=== PATIENT | female | born 1985 | race Caucasian/White ===

== ENCOUNTER 2021-09-07 12:07 | Emergency (ER) | payer OTHER, SELFPAY ==
--- NOTE | ~2021-09-07 | CT_ITS ---
EXAMINATION: CT ANGIOGRAM OF THE CHEST WITH AND WITHOUT CONTRAST (CT PULMONARY ANGIOGRAM FOR PE) CLINICAL INFORMATION: Reason for Exam CP, SOB, elevated d-dimer COMPARISON: None TECHNIQUE: Prior to contrast administration, noncontrast localization images were obtained. Subsequently, multidetector volumetric imaging was performed from the thoracic inlet to below the diaphragms following the administration of 62 mL Omnipaque 350 intravenous contrast. No contrast reaction reported Sagittal, coronal, and MIP oblique sagittal reformatted images were obtained on the CT workstation, uploaded to PACS, and reviewed. This CT examination was performed using dose optimization techniques as appropriate, variously including the following: *Automated exposure control *Adjustment of mA and/or kV according to patient size (this includes techniques or standardized protocols for targeted exams where dose is matched to indication/reason for exam; i.e. extremities or head) *Use of iterative reconstruction technique Total exam dose-length product 249 mGy-cm FINDINGS: QUALITY OF STUDY/CONTRAST BOLUS: Satisfactory. PULMONARY ARTERIES: No central or segmental pulmonary emboli. THORACIC AORTA: No aneurysm or dissection. Variant direct origin left vertebral artery from the aortic arch noted incidentally. LUNG: No focal consolidation, nodules or masses. PLEURA: No pleural effusion or pneumothorax. MEDIASTINUM: No cardiomegaly or pericardial effusion. No mediastinal or hilar lymphadenopathy . CHEST WALL/AXILLA: No axillary or internal mammary lymphadenopathy. OSSEOUS STRUCTURES: No acute or suspicious osseous abnormality. UPPER ABDOMEN: Unremarkable. No reflux of contrast into the hepatic veins to suggest elevated right heart pressures. CT/CT angio chest PE protocol IMPRESSION: 1. No evidence pulmonary embolus. 2. No airspace consolidation or effusions. VTE: negative
--- NOTE | ~2021-09-07 | XR_ITS ---
EXAMINATION: XR CHEST CLINICAL INFORMATION: Chest pain COMPARISON: None TECHNIQUE: 2 views of the chest were obtained. FINDINGS: The lungs are clear. No airspace consolidation, pleural effusion, or pneumothorax. The cardiomediastinal silhouette is within normal limits. No acute osseous injury. Right-sided nipple piercing noted. XR/XR chest 2V IMPRESSION: No acute pulmonary process.
[2021-09-07 12:28] VITALS: BP 134/78; PULSE 57; RESP 18; TEMP 36.1; O2SAT 100; BMI 27.1
--- NOTE | 2021-09-07 14:46 | ECG_ITS ---
Test Reason : chest pain Blood Pressure : / mmHG Vent. Rate : 060 BPM Atrial Rate : 060 BPM P-R Int : 182 ms QRS Dur : 078 ms QT Int : 436 ms P-R-T Axes : 046 056 009 degrees QTc Int : 436 ms Normal sinus rhythm Normal ECG No previous ECGs available Referred By: Generic ED Physician Electronically Signed By:JUANCARLOS CLAYTON MD
[2021-09-07 17:57] LABS: Hematocrit 39.2 % (37.0-47.0); Hemoglobin 13.1 g/dl (12.0-16.0); Mean Corpuscular HGB Conc 33.4 g/dl (31.0-35.0); Mean Corpuscular Hemoglobin 29.4 pg (27.0-33.0); Mean Corpuscular Volume 88.1 fL (80.0-98.0); Mean Platelet Volume 9.7 fL (9.4-12.3); Platelet Count 288 X10*3/uL (160-400); Red Blood Count 4.45 X10*6/uL (4.20-5.50); Red Cell Distribution Width 13.2 % (11.0-16.0); White Blood Count 8.2 X10*3/uL (4.8-10.8)
[2021-09-07 18:14] LABS: Anion Gap 14 (12-20); Blood Urea Nitrogen 11 mg/dL (9-16); Calcium 8.9 mg/dL (8.4-10.2); Carbon Dioxide 24 mmol/L (22-29); Chloride 105 mmol/L (96-108); Estimated Glomerular Filt Rate > 60; Glucose Random 80 mg/dL (60-115); Potassium 4.7 mmol/L (3.3-5.1); Sodium 138 mmol/L (135-145)
--- NOTE | 2021-09-07 18:16 | ED_ITS ---
HPI - Chest Pain General Chief Complaint: Chest Pain <Maine ThompsonGARCIA - Last Filed: 09/07/21 20:57> Stated Complaint: SEVERE CHEST PAIN <Maine ThompsonGACRIA - Last Filed: 09/07/21 20:57> Time Seen by Provider: 09/07/21 18:03 <Maine ThompsonGARCIA - Last Filed: 09/07/21 20:57> Source: patient <Maine Thompson GARCIA - Last Filed: 09/07/21 20:57> Mode of arrival: ambulatory <Maine ThompsonGARCIA - Last Filed: 09/07/21 20:57> Limitations: no limitations <Maine ThompsonGARCIA - Last Filed: 09/07/21 20:57> History of Present Illness HPI narrative: Patient presents emergency department for evaluation of chest pain. Onset was 2 days ago. [place] a substernal, described as tightness, feels that it is causing stiffness in her neck and along her left arm. She does report that she recently started an exercise routine, ?not sure if I pulled something?. The chest pain improves with movement of her arms/stretching. But then it returns. She does report associated shortness of breath over the past few days if she is up and walking wound, or talking for too long, prior to her arrival today she was feeling severe pain 10/10, short of breath, sweaty. Currently, her pain is 6/10. Denies fevers, chills, upper respiratory symptoms, coughing, nausea, vomiting, abdominal pain, numbness or tingling of the extremities, swelling or pain in her extremities. Denies personal history of DVT/PE, cancer, recent surgery, immobilization, use of oral contraceptives, tobacco smoking. Reports a family history of [place] at a young age, as well as DVTs. <Maine ThompsonGARCIA - Last Filed: 09/07/21 20:57> Related Data Allergies/Adverse Reactions: Allergies Allergy/AdvReac Type Severity Reaction Status Date / Time No Known Allergies Allergy Verified 09/07/21 12:27 <Maine Schmid GARCIA Thompson - Last Filed: 09/07/21 20:57> Review of Systems Review of Systems: Constitutional : No Weight loss, No Fever, No Chills ENT/Mouth :? No sore throat, No Rhinorrhea Eyes: No Eye Pain, No Swelling Cardiovascular : pos Chest Pain, pos SOB, No Orthopnea, No Edema, No Palpitations Respiratory : No Cough, No Sputum Gastrointestinal : pos Nausea, No Vomiting, No Diarrhea, No abdominal Pain, No Hematochezia, No Melena Genitourinary : No Dysuria, No Urinary Frequency Musculoskeletal : No joint pain, No Myalgias, No Joint Swelling Skin : No Skin Lesions, No rash Neuro : No Weakness, No Numbness, No Dizziness, No Headache Psych : No Anxiety/Panic, No Depression Heme/Lymph: No Bruising, No Lymphadenopathy Endocrine : No Polyuria, No Polydipsia <Maine Thompson CNP - Last Filed: 09/07/21 20:57> Yes all other systems are reviewed and are negative <Maine Thompson CNP - Last Filed: 09/07/21 20:57> [facility] Past Medical History Attestation statement: The following information was validated with the patient. <Maine Thompson CNP - Last Filed: 09/07/21 20:57> Source: old records reviewed <Maine Thompson CNP - Last Filed: 09/07/21 20:57> Social History Social History: Social History Advance Directives: No Advance Directives Information Provided: Yes <Maine Thompson CNP - Last Filed: 09/07/21 20:57> Physical Exam Vital Signs: Vital Signs: Last Vital Signs Temp 96.9 F 09/07/21 12:28 Pulse 57 09/07/21 12:28 Resp 18 09/07/21 12:28 BP 134/78 09/07/21 12:28 Pulse Ox 100 09/07/21 12:28 O2 Del Method 09/07/21 12:28 BMI result Body Mass Index 27.1 Vital signs have been reviewed as normal and appeared to be correct. Blood press ure normal.? Heart rate normal.? Respiration rate normal. Temperature normal.? Oxygen saturation normal. <Maine Thompson CNP - Last Filed: 09/07/21 20:57> Vital Signs: Last Vital Signs Temp 96.9 F 09/07/21 12:28 Pulse 57 09/07/21 12:28 Resp 18 09/07/21 12:28 BP 134/78 09/07/21 12:28 Pulse Ox 100 09/07/21 12:28 O2 Del Method 09/07/21 12:28 BMI result Body Mass Index 27.1 <CHINA Drake - Last Filed: 09/07/21 23:09> Appearance: Alert.?Oriented to person, place and time. No acute distress.?Normal affect. Eyes: Pupils equal, round and reactive to light.? ENT: Pharynx normal.?? Neck: Normal inspection.? Neck supple.?? CVS: Heart sounds normal. Normal heart rate and rhythm.? Pulses normal.?? Respiratory: No respiratory distress.? Lung sounds clear to auscultation bilaterally?? Abdomen: Soft and non-tender. Normoactive bowel sounds. No pulsatile mass.?? Skin: Skin warm and dry.? Normal skin color.? Extremities: No lower extremity edema.? No calf ttp? Neuro: Moves all extremities spontaneously. Sensation intact bilaterally. CN II- XII intact. No focal neuro deficits. Ambulates with normal steady gait. <Maine Thompson CNP - Last Filed: 09/07/21 20:57> Course Course Course Narrative: Patient is a 36-year-old female with no significant past medical history presenting to emergency department for evaluation of chest pain x2 days. She is overall well appearing, hemodynamically stable. Given that her pain does improve with movement of her arms her back this may be muscular in nature, will trial a course of ibuprofen at this time. Will obtain CBC to evaluate for leukocytosis/ anemia, CMP to evaluate for abnormal electrolytes /abnormal renal function/ abnormal hepatic function, EKG and troponin to evaluate for ischemia/ACS. Chest x-ray to evaluate for consolidation/ infiltrate/ mass/ pulm onary congestion. D-dimer to exclude pulmonary embolism. <Maine Thompson CNP - Last Filed: 09/07/21 20:57> Reevaluation(s) Reevaluation #1: CBC is unremarkable, CMP unremarkable. Troponin <3.5, EKG reveals normal sinus rhythm with no acute ischemic findings. D-Dimer 425, will obtain CT angio of the chest to evaluate for pulmonary embolism. Advised by nursing staff that patient is bradycardic with heart rate in the high 40s to 50s. Patient states she is unaware of her baseline heart rate. Asymptomatic. Repeat EKG shows sinus bradycardia, no AV block. <Maine Thompson CNP - Last Filed: 09/07/21 20:57> Time: 19:08 <Maine Thompson CNP - Last Filed: 09/07/21 20:57> Reevaluation #2: Patient signed out to Bonny Plasencia, pending results of CT of the chest, if unremarkable for pulmonary embolism, pain most likely secondary to costochondritis, which I reviewed with patient, discussed appropriate treatment for, discussed worsening signs and symptoms she would need to return back to the emergency department for, all questions were answered. <Maine Thompson CNP - Last Filed: 09/07/21 20:57> Reevaluation #3: CT angiogram for PE with no signs of PE, likely costochondritis. Patient will be discharged home. <CHINA Drake - Last Filed: 09/07/21 23:09> Time: 23:09 <CHINA Drake - Last Filed: 09/07/21 23:09> MDM - Chest Pain Medical Records Data Attestation: I reviewed the patient's medical records. <Maine Thompson CNP - Last Filed: 09/07/21 20:57> Lab Data Attestation: I reviewed the patient's lab results. <Maine Thompson CNP - Last Filed: 09/07/21 20:57> Result diagrams: : 09/07/21 17:46 09/07/21 17:46 <Maine Thompson CNP - Last Filed: 09/07/21 20:57> Labs: Lab Results 09/07/21 09/07/21 09/07/21 Range/Units 17:46 17:46 17:46 WBC 8.2 (4.8-10.8) X10*3/uL RBC 4.45 (4.20-5.50) X10*6/uL Hgb 13.1 (12.0-16.0) g/dl Hct 39.2 (37.0-47.0) % MCV 88.1 (80.0-98.0) fL MCH 29.4 (27.0-33.0) pg MCHC 33.4 (31.0-35.0) g/dl RDW 13.2 (11.0-16.0) % Plt Count 288 (160-400) X10*3/uL MPV 9.7 (9.4-12.3) fL Absolute Nucleated RBC 0.000 (0.0-0.012) X10*3/uL Nucleated RBC % (auto) 0.0 (0.0-0.2) /100WBC D-Dimer High Sensitivty NG/ML Sodium 138 (135-145) mmol/L Potassium 4.7 (3.3-5.1) mmol/L Chloride 105 (96-108) mmol/L Carbon Dioxide 24 (22-29) mmol/L Anion Gap 14 (12-20) BUN 11 (9-16) mg/dL Creatinine 0.79 (0.5-1.4) mg/dL Estim Creat Clear Calc 100.0 Estimated GFR > 60 Random Glucose 80 (60-115) mg/dL Calcium 8.9 (8.4-10.2) mg/dL Total Bilirubin 0.6 (0.0-1.0) mg/dL Direct Bilirubin 0.2 (0.0-0.5) mg/dL AST 19 (5-31) U/L ALT 18 (0-31) U/L Alkaline Phosphatase 74 (39-117) U/L Troponin I High Sens < 3.5 (<3.5-17.0) ng/L Total Protein 7.6 (6.5-8.0) g/dL Albumin 4.4 (3.5-5.0) g/dL COVID-19 (ELE) (Negative) COVID-19 Clin Com 09/07/21 09/07/21 Range/Units 18:42 18:42 WBC (4.8-10.8) X10*3/uL RBC (4.20-5.50) X10*6/uL Hgb (12.0-16.0) g/dl Hct (37.0-47.0) % MCV (80.0-98.0) fL MCH (27.0-33.0) pg MCHC (31.0-35.0) g/dl RDW (11.0-16.0) % Plt Count (160-400) X10*3/uL MPV (9.4-12.3) fL Absolute Nucleated RBC (0.0-0.012) X10*3/uL Nucleated RBC % (auto) (0.0-0.2) /100WBC D-Dimer High Sensitivty 425 NG/ML Sodium (135-145) mmol/L Potassium (3.3-5.1) mmol/L Chloride (96-108) mmol/L Carbon Dioxide (22-29) mmol/L Anion Gap (12-20) BUN (9-16) mg/dL Creatinine (0.5-1.4) mg/dL Estim Creat Clear Calc Estimated GFR Random Glucose (60-115) mg/dL Calcium (8.4-10.2) mg/dL Total Bilirubin (0.0-1.0) mg/dL Direct Bilirubin (0.0-0.5) mg/dL AST (5-31) U/L ALT (0-31) U/L Alkaline Phosphatase (39-117) U/L Troponin I High Sens (<3.5-17.0) ng/L Total Protein (6.5-8.0) g/dL Albumin (3.5-5.0) g/dL COVID-19 (ELE) Negative (Negative) COVID-19 Clin Com See Note <Maine Thompson, SOFTBALL CORE MOLDER - Last Filed: 09/07/21 20:57> Lab Results 09/07/21 09/07/21 09/07/21 Range/Units 17:46 17:46 17:46 WBC 8.2 (4.8-10.8) X10*3/uL RBC 4.45 (4.20-5.50) X10*6/uL Hgb 13.1 (12.0-16.0) g/dl Hct 39.2 (37.0-47.0) % MCV 88.1 (80.0-98.0) fL MCH 29.4 (27.0-33.0) pg MCHC 33.4 (31.0-35.0) g/dl RDW 13.2 (11.0-16.0) % Plt Count 288 (160-400) X10*3/uL MPV 9.7 (9.4-12.3) fL Absolute Nucleated RBC 0.000 (0.0-0.012) X10*3/uL Nucleated RBC % (auto) 0.0 (0.0-0.2) /100WBC D-Dimer High Sensitivty NG/ML Sodium 138 (135-145) mmol/L Potassium 4.7 (3.3-5.1) mmol/L Chloride 105 (96-108) mmol/L Carbon Dioxide 24 (22-29) mmol/L Anion Gap 14 (12-20) BUN 11 (9-16) mg/dL Creatinine 0.79 (0.5-1.4) mg/dL Estim Creat Clear Calc 100.0 Estimated GFR > 60 Random Glucose 80 (60-115) mg/dL Calcium 8.9 (8.4-10.2) mg/dL Total Bilirubin 0.6 (0.0-1.0) mg/dL Direct Bilirubin 0.2 (0.0-0.5) mg/dL AST 19 (5-31) U/L ALT 18 (0-31) U/L Alkaline Phosphatase 74 (39-117) U/L Troponin I High Sens < 3.5 (<3.5-17.0) ng/L Total Protein 7.6 (6.5-8.0) g/dL Albumin 4.4 (3.5-5.0) g/dL COVID-19 (ELE) (Negative) COVID-19 Clin Com 09/07/21 09/07/21 Range/Units 18:42 18:42 WBC (4.8-10.8) X10*3/uL RBC (4.20-5.50) X10*6/uL Hgb (12.0-16.0) g/dl Hct (37.0-47.0) % MCV (80.0-98.0) fL MCH (27.0-33.0) pg MCHC (31.0-35.0) g/dl RDW (11.0-16.0) % Plt Count (160-400) X10*3/uL MPV (9.4-12.3) fL Absolute Nucleated RBC (0.0-0.012) X10*3/uL Nucleated RBC % (auto) (0.0-0.2) /100WBC D-Dimer High Sensitivty 425 NG/ML Sodium (135-145) mmol/L Potassium (3.3-5.1) mmol/L Chloride (96-108) mmol/L Carbon Dioxide (22-29) mmol/L Anion Gap (12-20) BUN (9-16) mg/dL Creatinine (0.5-1.4) mg/dL Estim Creat Clear Calc Estimated GFR Random Glucose (60-115) mg/dL Calcium (8.4-10.2) mg/dL Total Bilirubin (0.0-1.0) mg/dL Direct Bilirubin (0.0-0.5) mg/dL AST (5-31) U/L ALT (0-31) U/L Alkaline Phosphatase (39-117) U/L Troponin I High Sens (<3.5-17.0) ng/L Total Protein (6.5-8.0) g/dL Albumin (3.5-5.0) g/dL COVID-19 (ELE) Negative (Negative) COVID-19 Clin Com See Note <CHINA Drake - Last Filed: 09/07/21 23:09> Imaging Data Chest x-ray: Radiologist's impression: XR/XR chest 2V IMPRESSION: No acute pulmonary process. <Maine Thompson CNP - Last Filed: 09/07/21 20:57> ECG Data ECG #1: Attestation: I personally reviewed and interpreted this ECG as follows: <Maine Thompson CNP - Last Filed: 09/07/21 20:57> ECG interpretation date: 09/07/21 <Maine Thompson CNP - Last Filed: 09/07/21 20:57> Interpretation: Rate: Normal sinus rhythm Rhythm:? 60 [place]:? Normal Normal P waves.? Normal MATHEUS.?? Normal QRS complex.?? ST T wave :??No ST elevation, no ST depression, no T-wave inversion qTC: 436 prior studies:? None available for review The study has been interpreted contemporaneously by me. <Maine Thompson CNP - Last Filed: 09/07/21 20:57> Discharge Plan Discharge Clinical Impression: Costochondritis <Maine Thompson CNP - Last Filed: 09/07/21 20:57> Patient Disposition: Home, Self-Care <Maine Thompson CNP - Last Filed: 09/07/21 20:57> Instructions: Costochondritis (ED) <Maine Thompson CNP - Last Filed: 09/07/21 20:57> Additional Instructions: Your blood work was overall normal. Your EKG was normal. Chest x-ray is normal. COVID testing is negative. The CT scan of your chest does not show a blood clot. Your pain is most likely muscular in nature, be sure to rest, avoid excessive exercise, apply topical heat to the chest, Tylenol/ibuprofen as needed for pain. Follow-up with your primary care provider within 1-3 days. Return to the emergency department any new or worsening symptoms or concerns. <Maine Thompson CNP - Last Filed: 09/07/21 20:57> Referrals: Physician,Unknown J [Primary Care Provider] - 2 days <Maine Thompson CNP - Last Filed: 09/07/21 20:57>
[2021-09-07 18:21] LABS: Troponin-I High Sensitivity < 3.5 ng/L (<3.5-17.0)
[2021-09-07] MEDS: Ibuprofen 800 MG TABLET PO (18:30)
[2021-09-07 18:40] LABS: Alanine Aminotransferase 18 U/L (0-31); Albumin Level 4.4 g/dL (3.5-5.0); Alkaline Phosphatase 74 U/L (39-117); Aspartate Amino Transferase 19 U/L (5-31); Bilirubin Direct 0.2 mg/dL (0.0-0.5); Bilirubin Total 0.6 mg/dL (0.0-1.0); Total Protein 7.6 g/dL (6.5-8.0)
--- NOTE | 2021-09-07 18:46 | ECG_ITS ---
Test Reason : REPEAT RENATO Blood Pressure : / mmHG Vent. Rate : 047 BPM Atrial Rate : 047 BPM P-R Int : 190 ms QRS Dur : 082 ms QT Int : 464 ms P-R-T Axes : 052 063 013 degrees QTc Int : 410 ms Sinus bradycardia Otherwise normal ECG When compared with ECG of 07-SEP-2021 12:21, No significant change was found Referred By: Maine Thompson Electronically Signed By:JUANCARLOS CLAYTON MD
--- NOTE | 2021-09-07 18:50 | PC.NURSE ---
Pt HR 42, pt c/o lightheadedness at that time, PA aware, plan for repeat EKG
[2021-09-07 19:00] LABS: D Dimer High Sensitivity 425 NG/ML
[2021-09-07 19:06] LABS: COVID-19 Test Negative (Negative)
--- NOTE | 2021-09-07 19:58 | PC.NURSE ---
this RN attempt IV placement for CTA x2 with no success, another RN at bedside to attempt IV placement
[2021-09-07] MEDS: iohexoL 350 MG/ML 100 ML INFUS..BTL IV (20:23)
== END 2021-09-07 23:14 | disposition home or self-care (01) ==
PROVIDERS: Nurse Practitioner Family; Emergency Provider Emergency Medicine
DX: M94.0 Chondrocostal junction syndrome [Tietze] (principal); R06.02 Shortness of breath; R07.89 Other chest pain; Z20.822 Contact with and (suspected) exposure to COVID-19; Z79.899 Other long term (current) drug therapy
CPT/HCPCS: 36415; 71046; 71275; 80048; 80076; 84484; 85027; 85379; 87635; 93005; 99284; 99285; Q9967

== ENCOUNTER 2022-06-30 19:54 | Emergency (ER) | payer MEDICAID, SELFPAY ==
[2022-06-30 20:08] VITALS: BP 124/88; PULSE 71; O2SAT 97
--- NOTE | 2022-06-30 20:22 | ED_ITS ---
HPI - Dizziness General Chief Complaint: Headache Stated Complaint: DIZZY PER EMS Related Data Allergies Allergy/AdvReac Type Severity Reaction Status Date / Time No Known Allergies Allergy Verified 06/30/22 20:25 [facility] Social History Social History Advance Directives: No Advance Directives Information Provided: No Physical Exam Vital Signs: Vital Signs: Last Vital Signs Temp 98.4 F 06/30/22 20:26 Pulse 65 06/30/22 20:26 Resp 18 06/30/22 20:26 BP 129/93 H 06/30/22 20:26 Pulse Ox 100 06/30/22 20:26 O2 Del Method Room Air 06/30/22 20:26 BMI result Body Mass Index 28.1 Course Course Course Narrative: RME: 37yo F w/ PMHx migraines c/o pain behind R eye, blurry vision, N/V x3 episodes and lightheadedness x1hr. Sx began after going on hike. HARVEY not maximal at onset. denies visual loss, CP/SOB. denies taking AC EKG, labs, UA, head CT, SL Zofan ordered Full HPI, ROS and PE to be performed by primary ED provider. Discharge Plan Discharge Clinical Impression: Headache Patient Disposition: Elopement Interventions: LWBS Worksheet Last Done: 06/30/22 21:14 Discharge Date/Time: 07/01/22 09:52
[2022-06-30 20:26] VITALS: BP 129/93; PULSE 65; RESP 18; TEMP 36.9; O2SAT 100; BMI 28.1
== END 2022-07-01 09:52 | disposition left against medical advice (07) ==
LOC: HO.ED 07-01 09:51
PROVIDERS: Emergency Provider Emergency Medicine
DX: R51.9 Headache, unspecified (principal)
CPT/HCPCS: 99281

== ENCOUNTER 2023-02-05 08:18 | Emergency (ER) | payer MEDICAID, SELFPAY ==
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
[2023-02-05 08:31] VITALS: BP 119/76; PULSE 53; RESP 20; TEMP 36.8; O2SAT 98; BMI 31.1
--- OUTSIDE RECORDS SUMMARY | 2023-02-05 08:45 | XMS_ITS | Continuity of Care Document ---
Author Name Unknown Organization [facility] Address [address] [place] [id number]- Care Team Providers Care Model Set Artist Name Role Phone Not on Staff, PCP Primary Care Physician Unavail able Encounter [facility] Date(s[facility] 10/04/20 - 02/01/21 [facility] [address] [place] [id number]- Attending Physician: Orlando Villa MD Admitting Physician: Orlando Villa MD Referring Physician: Brittany HERNANDEZ, Kevin Astorga Allergies, Adverse Reactions, Alerts Substance Reaction Severity Status NKA Active Medications ibuprofen 600 mg oral tablet 1 tablet = 600 mg, By Mouth, 4 times a day, PRN as needed for pain, # 28 tablet, 0 Refills, Maintenance, 08/03/14 18:21:23, Tablet Start Date: 08/03/14 Stop Date: 08/10/14 Status: Ordered
--- OUTSIDE RECORDS SUMMARY | 2023-02-05 08:45 | XMS_ITS | Continuity of Care Document ---
Author Name Unknown Organization [facility] Address [address], [address] [place] [address]- Care Team Providers Care Cheese Factory Worker Name Role Phone Not on Staff, PCP Primary Care Physician Unavail able Encounter [facility] Date(s): 01/06/19 - 05/03/19 [facility] [address], [address], [address] [place] [id number]- [facility] Attending Physician: Lewis HERNANDEZ, Orlando Weir Referring Physician: Samy Giraldo Allergies, Adverse Reactions, Alerts Substance Reaction Severity Status NKA Active Medications ibuprofen 600 mg oral tablet 1 tablet = 600 mg, By Mouth, 4 times a day, PRN as needed for pain, # 28 tablet, 0 Refills, Maintenance, 08/03/14 18:21:23, Tablet Start Date: 08/03/14 Stop Date: 08/10/14 Status: Ordered
--- OUTSIDE RECORDS SUMMARY | 2023-02-05 08:45 | XMS_ITS | Continuity of Care Document ---
Author Name Unknown Organization [facility] Address [address] [place] [address]- Care Team Providers Care Clinic Office Coordinator Name Role Phone Eduarda Crouch NP Primary Care Physician Encounter [facility] [place] Date(s): 12/17/22 - 01/16/[address] [address] Attending Physician: Christiano Frey Admitting Physician: Christiano Frey Referring Physician: Christiano Frey Allergies, Adverse Reactions, Alerts No Known Allergies Medications Biotin By Mouth, Daily, 0 Refills, Maintenance, 12/12/22 9:32:00 EDT, Partial fill upon patient request ifthe prescription is for a schedule II opioid drug. Start Date: 12/12/22 Status: Ordered ibuprofen 600 mg oral tablet 1 tablet = 600 mg, By Mouth, 4 times a day, PRN as needed for pain, # 28 tablet, 0 Refills, Maintenance, 08/03/14 18:21:23, Tablet Start Date: 08/03/14 Stop Date: 08/10/14 Status: Ordered Naproxen By Mouth, 0 Refills, Maintenance, 12/12/22 9:32:00 EDT, Partial fill upon patient request if the prescription is for a schedule II opioid drug. Start Date: 12/12/22 Status: Ordered Patient Care team information Care Team Personnel Name: Eduarda Crouch NP Position: Reference Physician Member Role: PCP Address: Address: [address] [place] [id number]- Care Team Related Persons Name: RICKI POTTER Address: home [address] [place] [address]
--- OUTSIDE RECORDS SUMMARY | 2023-02-05 08:45 | XMS_ITS | Continuity of Care Document ---
Author Name Unknown Organization [facility] Address [address] [place] [address]- Care Team Providers Care Workforce Advisor Name Role Phone Not on Staff, PCP Primary Care Physician Unavail able [place] [facility] [place]21 - 02/01/21 [facility] [address] [place] [address]- Attending Physician: Christiano Frey Admitting Physician: Christiano Frey Referring Physician: Christiano Frey Allergies, Adverse Reactions, Alerts Substance Reaction Severity Status NKA Active Medications ibuprofen 600 mg oral tablet 1 tablet = 600 mg, By Mouth, 4 times a day, PRN as needed for pain, # 28 tablet, 0 Refills, Maintenance, 08/03/14 18:21:23, Tablet Start Date: 08/03/14 Stop Date: 08/10/14 Status: Ordered
--- OUTSIDE RECORDS SUMMARY | 2023-02-05 08:45 | XMS_ITS | Continuity of Care Document ---
Author Name Unknown Organization [facility] [employer] [facility] Address [address] [place] [address], [address]t [place] [address]- Care Team Providers Care Business Owner/Engineer Name Role Phone Eduarda Crouch NP Primary Care Physician Encounter [id number] Date(s): 12/12/22 - 12/19/22 [facility] Addyjonathan [employer] [employer] [facility] [address] [facility], 4th [address] [place], [place] [address] Attending Physician: Not on Staff, Attending MD Referring Physician: Eduarda Crouch NP Allergies, Adverse Reactions, Alerts No Known Allergies [...] opioid drug. Start Date: 12/12/22 Status: Ordered Vital Signs Most recent to oldest [Reference Range]: 1 Height 165 cm (12/12/22 9:32 AM) Weight 79.5 kg (12/12/22 9:32 AM) Pulse Rate [55-90 bpm] 70 bpm (12/12/22 9:32 AM) Body Mass Index [18.5-24.99 kg/m2] 29.2 kg/m2 *H* (12/12/22 9:32 AM) Blood Pressure [90-138/55-84 mm Hg] 104/ 70mm Hg (12/12/22 9:32 AM) Respiratory Rate [16-30 br/min] 18 br/mi n (12/12/22 9:32 AM) Blood pressure sites Arm, left (12/12/22 9:32 AM) Dry Weight Obtained Via Standing scale (12/12/22 9:32 AM) Patient Care team information Care Team Personnel Name: Eduarda Crouch NP Position: Reference Physician Member Role: PCP Address: Address: [address] [place] [address]- Care Team Related Persons Name: RICKI POTTER Address: home [address] [place] [address]
--- OUTSIDE RECORDS SUMMARY | 2023-02-05 08:45 | XMS_ITS | Continuity of Care Document ---
Author Name Unknown Organization [facility] Address [address] [place] [address]- Care Team Providers Care Water Purifier Operator Name Role Phone Eduarda Crouch NP Primary Care Physician [phone] [place] [facility] [place]): [place]17[place] - 01/28/23 [facility] [address] [place] [address]- [place] Encounter Diagnosis Pain in right shoulder(Final) - Discharge Disposition: A-D/C Home Attending Physician: Jm Shrestha Admitting Physician: Jm Shrestha Referring Physician: Jm Shrestha Allergies, Adverse Reactions, Alerts No Known Allergies [...] Reference Physician Member Role: PCP Address: Address: [address] [place] [address]- Care Team Related Persons Name: RICKI POTTER Address: home [address] [place] [address]
--- OUTSIDE RECORDS SUMMARY | 2023-02-05 08:45 | XMS_ITS | Continuity of Care Document ---
Author Name Unknown Organization [facility] Address [address] [place] [address]- Care Team Providers Care Video Tape Editor Name Role Phone Not on Staff, PCP Primary Care Physician Unavail able [place] [facility] [place](s[place] 12/19/20 - 12/19/[address] [address]- Encounter Diagnosis Ankle pain(Final) - 12/19/20 Discharge Disposition: A-D/C Home Attending Physician: Jaime Sanchez MD Admitting Physician: Jaime Sanchez MD Referring Physician: Not on Staff, Referring MD Allergies, Adverse Reactions, Alerts Substance Reaction Severity Status NKA Active Medications ibuprofen 600 mg oral tablet 1 tablet = 600 mg, By Mouth, 4 times a day, PRN as needed for pain, # 28 tablet, 0 Refills, Maintenance, 08/03/14 18:21:23, Tablet Start Date: 08/03/14 Stop Date: 08/10/14 Status: Ordered Results Radiology Reports * Exam Date Time Procedure Performing Provider Status 12/19/20 9:20 AM Ankle Min 3 Views Right Alex Marcos; Auth (Verified) Notes: (Ankle Min 3 Views Right) Reason For Exam: Pain RESULT: Ankle Min 3 Views Right Ankle Min 3 Views Right Hx of Present Illness: R ankle injury. unable to bear weight. Yesterday fell down a flight of stairs yesterday at 1900. States she has been going to PT for L knee and lost footing. Also c o generalized body pain- neck, R hip, L elbow. States she may have hit her head. Unk. LOC; Reason: Pain; Clinical Question(s): Fracture. FINDINGS: Faint radiolucent line related to spur off the posterior aspect of calcaneus, possible/probable fractures, if so question age. Soft tissue swelling, most prominent laterally, is also seen. IMPRESSION: Possible/probable fractures of spur off posterior calcaneus, question age. WSN: [id number] Ordering Physician: Debra Tobar Dictated By: Rizwan Vega MD Dictated Date/Time: 12/19/20 9:24 am Reviewed By: Rizwan Vega MD Signed By: Rizwan Vega MD Signed Date/Time: 12/19/20 9:24 am Transcribed By: VIRGILIO Transcribed Date/Time: 12/19/20 9:21 am Vital Signs Most recent to oldest [Reference Range]: 1 2 3 Oxygen Saturation [94-100 %] 100 % (12/19/20 11:56 AM) 100 % (12/19/20 8:56 AM) 100 % (12/19/20 8:49 AM) Pulse Rate [55-90 bpm] 54 bpm *L* (12/19/20 11:56 AM) 66 bpm (12/19/20 8:56 AM) 78 bpm (12/19/20 8:49 AM) Blood Pressure [90-138/55-84 mm Hg] 110/67mm Hg (12/19/20 11:56 AM) 110/67mm Hg (12/19/20 8:56 AM) Respiratory Rate [16-30 br/min] 16 br/min (12/19/20 11:56 AM) 16 br/min (12/19/20 8:56 AM) Temperature [96.8-100.4 DegF] 97.7 DegF (12/19/20 11:56 AM) 98.1 DegF (12/19/20 8:56 AM) Liters per Minute 0 L/min (12/19/20 11:56 AM) Mode of Delivery (Oxygen) Room air (12/19/20 11:56 AM) Room air (12/19/20 8:56 AM) Room air (12/19/20 8:49 AM) Blood pressure sites Arm, right (12/19/20 11:56 AM) Temperature Route Oral (12/19/20 11:56 AM) Oral (12/19/20 8:56 AM)
--- OUTSIDE RECORDS SUMMARY | 2023-02-05 08:45 | XMS_ITS | Continuity of Care Document ---
Author Name Unknown Organization [facility] [employer] [facility] Address [address] [place] [address], [address] [place] [address]- Care Team Providers Care Support Services Manager Name Role Phone Eduarda Crouch NP Primary Care Physician [id number] [address] [facility], [address] [place] [address]- Attending Physician: Christiano Frey Admitting Physician: AdmChristiano christine Referring Physician: AdmtrChristiano Allergies, Adverse Reactions, Alerts No Known Allergies [...] Reference Physician Member Role: PCP Address: Address: [address] [place] [address]- Care Team Related Persons Name: RICKI POTTER Address: home [address] [place] [address]
--- OUTSIDE RECORDS SUMMARY | 2023-02-05 08:45 | XMS_ITS | Continuity of Care Document ---
Author Name Unknown Organization [facility] Address [address] [facility], [address] d Floor, [address] [place] [address]- Care Team Providers Care Sharepoint Designer Developer Name Role Phone Not on Staff, PCP Primary Care Physician Unavail able Encounter [facility] Date(s): 04/03/19 - 04/13/19 [facility] [address] [facility], [address]rd Floor, [address] [place] [address] [facility] Attending Physician: Christiano Frey Admitting Physician: Christiano Frey Referring Physician: AdmtrChristiano Allergies, Adverse Reactions, Alerts Substance Reaction Severity Status NKA Active Medications ibuprofen 600 mg oral tablet 1 tablet = 600 mg, By Mouth, 4 times a day, PRN as needed for pain, # 28 tablet, 0 Refills, Maintenance, 08/03/14 18:21:23, Tablet Start Date: 08/03/14 Stop Date: 08/10/14 Status: Ordered
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
[2023-02-05] MEDS: Lidocaine 4 % Patch ADH..PATCH 1 PATCH TRANSDERMA (09:37)
[2023-02-05] MEDS: Cyclobenzaprine HCl 10 MG TABLET PO (09:38)
[2023-02-05] MEDS: Ketorolac Tromethamine 30 MG/ML VIAL IM (09:38)
[2023-02-05] MEDS: Ondansetron ODT 4 MG TAB.RAPDIS TRANSLINGU (09:43)
== END 2023-02-05 10:46 | disposition home or self-care (01) ==
PROVIDERS: Emergency Provider Emergency Medicine Emergency Medical Services; PCP Nurse Practitioner Family
DX: S09.90XA Unspecified injury of head, initial encounter (principal); S13.4XXA Sprain of ligaments of cervical spine, initial encounter; R51.9 Headache, unspecified; M54.2 Cervicalgia; V43.52XA Car driver injured in collision with other type car in traffic accident, initial encounter; Y93.9 Activity, unspecified; Y92.410 Unspecified street and highway as the place of occurrence of the external cause; Y99.9 Unspecified external cause status; Z79.899 Other long term (current) drug therapy
CPT/HCPCS: 70450; 72125; 96372; 99283; 99284; J1885

== ENCOUNTER 2024-02-03 08:34 | Outpatient (AMB) | payer OTHER, SELFPAY ==
[2024-02-03 08:39] VITALS: BMI 30.9
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
== END 2024-02-03 09:24 | disposition home or self-care (01) ==
PROVIDERS: PCP Nurse Practitioner Family; Visit Provider Physician Assistant
DX: M22.2X1 Patellofemoral disorders, right knee (principal)
CPT/HCPCS: 99203; G2211

== ENCOUNTER 2024-02-03 10:49 | Outpatient (REF) | payer OTHER, SELFPAY ==
--- NOTE | ~2024-02-03 | XR_ITS ---
EXAMINATION: XR KNEE LEFT CLINICAL INFORMATION: Pain in left knee M25.562. COMPARISON: None available. TECHNIQUE: Standing AP view of the left knee. FINDINGS: Normal standing AP view of both knees. XR/XR knee LT 1V IMPRESSION: Normal standing AP view of the knees. Electronically signed by: Stew Powell MD 03/12/2024 08:47 AM [facility]
== END 2024-02-03 10:50 | disposition home or self-care (01) ==
LOC: HO.HOSX 10:49
PROVIDERS: Visit Provider Physician Assistant
DX: M17.11 Unilateral primary osteoarthritis, right knee (principal); M25.562 Pain in left knee
CPT/HCPCS: 73560; 73562

== ENCOUNTER 2024-09-24 14:39 | Outpatient (AMB) | payer OTHER, MEDICAID, SELFPAY ==
--- OUTSIDE RECORDS SUMMARY | 2020-11-16 09:16 | XMS_ITS | Continuity of Care Document ---
Author Organization [facility] Address [address] [place] [address] Care Team Providers Care Director Of Land Name Role Phone Anatoliy Martinez MD Unavailable Unavailable Allergies, Adverse Reactions, Alerts Substance Reaction Status Criticality No Known Allergies Active No Inform ation Advance Directives Directive Yes / No Effective Date File Name No Information Encounters Encounter Description Practice Location Reason(s) For Visit Diagnoses Date Provider Providers Copied on Encounter [facility], [address] [place] [address], [facility]note 3], [facility] No Information 1 Juan Cope. [address] [facility], [address], [address], [place]. tel:[phone] [facility], [address] [place] [address], [facility][note 3], [facility] No Information 1 Lucille Traore. [address] [facility], [address], [address], [place]. tel:[phone] Family History Family Member Type Diagnosis Age At Onset Problem No family histor y of Coronary artery disease, premature Payers Payer name Insurance type Covered alliance party ID Authoriza tion(s) No Information Social History [...]
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
--- OUTSIDE RECORDS SUMMARY | 2024-09-24 14:43 | XMS_ITS | Clinical Summary ---
Author Organization [address] [facility] Address [address] [place] [address] Phone Care Team Providers Care Pharmacy Manager Name Role Phone Unavailable Primary Care Provider Unavailabl e Surgical History Surgery Date Site/Laterality Comments OTHER SURGICAL HISTORY 2004 PROCEDURE: AR DILATION & CURETTAGE DX&/THER NONOBSTETRIC; COMMENT: AFTER Medical History Medical History Date Comments Eczema DX:Eczema Family History Medical History Relation Name Comments Breast cancer Father's side 1 Other cancer Mother's side 1 cervical Relation Name Status Comments Brother Alive Father Alive asthma Father's side 1 Father's side 2 Maternal Grandfather Alive Maternal Grandmother Alive Mother Alive Mother's side 1 Mother's side 2 Paternal Grandfather Paternal Grandmother Alive Sister 1 Alive Sister 2 Alive Social History Tobacco Use Types Packs/Day Years Used Date Smoking Tobacco: Never Alcohol Use Standard Drinks/Week Comments Yes 0 (1 standard drink = 0.6 oz pur e alcohol) Comments Unknown Sex and Gender Information Value Date Recorded Sex Assigned at Not on file Legal Sex Female 4:35 AM EST Gender Identity Not on file Sexual Orientation Not on file Obstetrics History Plan of Treatment Health Maintenance Due Date Last Done Comments DTaP,Tdap,and Td Vaccines (1 - Tdap) 2005 Hepatitis B Vaccines (1 of 3 - 19+ 3-dose series) 2005 Cervical Cancer Screening: P ap Smear 2007 COVID-19 Vaccine ( - 2023-2 5 season) 2023 HIV Screening 12/18/2023 Hepatitis C Screening 12/18/2023 Social Influencers of Health Screening 12/18/2023 Depression Screening 02/26/2024 Influenza Vaccine (#1) 2024 HIB Vaccines Aged Out No longer eligi ble based on patient's age to complete this topic HPV Vaccines Aged Out No longer eligi ble based on patient's age to complete this topic Hepatitis A Vaccines Aged Out No long er eligible based on patient's age to complete this topic IPV Vaccines Aged Out No longer eligi ble based on patient's age to complete this topic MMR Vaccines Aged Out No longer eligi ble based on patient's age to complete this topic Meningococcal ACWY Vaccine Aged Out N o longer eligible based on patient's age to complete this topic Meningococcal B Vaccine Aged Out No l onger eligible based on patient's age to complete this topic Pneumococcal Vaccine: Pediat rics (0 to 5 Years) and At-Risk Patients (6 to 49 Years) Aged Out No longer eligible b ased on patient's age to complete this topic RSV Immunization Patients Un demian 20 months Aged Out No longer eligible b ased on patient's age to complete this topic Varicella Vaccines Aged Out No longer eligible based on patient's age to complete this topic Insurance [place]
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
[2024-09-24 15:03] VITALS: BP 121/83; PULSE 68; O2SAT 100; BMI 32.8
== END 2024-09-24 16:00 | disposition home or self-care (01) ==
PROVIDERS: PCP Nurse Practitioner Family; Visit Provider Nurse Practitioner Family
DX: M54.41 Lumbago with sciatica, right side (principal); G89.29 Other chronic pain; Z87.828 Personal history of other (healed) physical injury and trauma; M62.830 Muscle spasm of back; G43.909 Migraine, unspecified, not intractable, without status migrainosus; M54.16 Radiculopathy, lumbar region
CPT/HCPCS: 99204

== ENCOUNTER 2024-10-31 19:03 | Outpatient (REF) | payer MEDICAID, SELFPAY ==
--- OUTSIDE RECORDS SUMMARY | 2020-11-16 09:16 | XMS_ITS | Continuity of Care Document ---
Author Organization [facility] Address [address] [place] [address] Care Team Providers Care Board Writer Name Role Phone Anatoliy Martinez MD Unavailable Unavailable Allergies, Adverse Reactions, Alerts Substance Reaction Status Criticality No Known Allergies Active No Inform ation Advance Directives Directive Yes / No Effective Date File Name No Information Encounters Encounter Description Practice Location Reason(s) For Visit Diagnoses Date Provider Providers Copied on Encounter [facility], [address] [place] [address], [facility], [facility] 1 Juan Cope. [address] [facility], [address], [address], [place]. tel:[phone] [facility], [address] [place] [address], [facility], [facility] No Information 1 Lucille Traore. [address] [facility], [address], [address], [place]. tel:[phone] Family History Family Member Type Diagnosis Age [...]
--- NOTE | ~2024-10-31 | MR_ITS ---
CLINICAL HISTORY: M54.41 - Lumbago with sciatica, right side MR lumbar spine without gadolinium Comparison: None Findings: Bony alignment of the lumbar vertebral bodies is anatomic. No fracture or concerning bone marrow signal alteration identified. The conus terminates at T12-L1. No abnormal signal intensity is identified within the conus medullaris. Visualized portions of the retroperitoneum are unremarkable. Sacroiliac joints are unremarkable. Disc height and hydration status is appropriate throughout. No disc bulge or protrusion identified. Minimal to mild facet joint degenerative change within the mid to lower lumbar spine, most pronounced at L4-5 and L5-S1. Central canal and neural foramina are widely patent. IMPRESSION: Minimal to mild facet joint degenerative change without associated disc pathology. No neural impingement. This document has been electronically signed by: Geovany Larose MD on 11/03/2024 09:22:57
--- OUTSIDE RECORDS SUMMARY | 2024-10-31 19:07 | XMS_ITS | Clinical Summary ---
Author Organization [address] [facility] Address [address] [place] [address] Phone Care Team Providers Care Corner Bead Operator Name Role Phone Unavailable Primary Care Provider Unavailabl e Surgical History Surgery Date Site/Laterality Comments OTHER SURGICAL HISTORY 2004 PROCEDURE: DE DILATION & CURETTAGE DX&/THER NONOBSTETRIC; COMMENT: AFTER [...] Cervical Cancer Screening: P ap Smear 2007 HIV Screening 12/18/2023 Hepatitis C Screening 12/18/2023 Social Influencers of Health Screening 12/18/2023 Depression Screening 02/26/2024 COVID-19 Vaccine ( - 2023-2 5 season) 2024 Influenza Vaccine (#1) 2024 HIB Vaccines Aged [...]
--- OUTSIDE RECORDS SUMMARY | 2024-10-31 19:07 | XMS_ITS | Clinical Summary ---
Author Organization [facility] Address [address] [place] [address] Care Team Providers Care Master Automotive Technician Name Role Phone Eduarda Crouch [facility] Primary Care Provider [phone] Source Comments PLEASE NOTE, if this patient [...] elbow eczema 30 g 2 024 Active acetaminophen (TYLENOL) 500 mg tabletIndications :Chronic bilateral low back pain without sciatica Take 2 Tablets by mouth every 8 (eight) hours as needed for pain Max 6 tabs per day 60 Tablet 1 024 Active lidocaine (LIDODERM) 5 % patchIndications: Right [...] a meal. 180 Tablet 1 025 Active diclofenac sodium (VOLTAREN) [address] tablet Take 75 mg by mouth 2 (two) times daily as needed for other reason (pain). 025 Active hydrocortisone 0.5 % creamIndications: Rash Apply topically 2 (two) times daily At left arm. 30 g 1 025 Active phentermine (IONAMIN) 15 mg capsuleIndication s:Class 1 obesity due to excess calories without serious comorbidity with body mass index (BMI) of 33.0 to 33.9 in adult,Body mass index 33.0-33.9, adult Take 1 Capsule by mouth every morning For obesity. Max Daily Amount: 15 mg 30 Capsule 025 Active topiramate (TOPAMAX) 25 mg tabletIndications :Migraine with aura and without status migrainosus, not intractable Take 1 Tablet by mouth nightly at bedtime for 28 days. 28 Tablet 1 025 2024 Active SUMAtriptan succinate (IMITREX) 100 mg tabletIndications :Migraine with aura and without status migrainosus, not intractable Take 1 Tablet by mouth once daily as needed for migraine If not better in 1 hour then take 1 more tab. Max 2 tabs per day.. 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 Take 0.5 Tablets by mouth once daily as needed for migraine for up to 28 days 30 Tablet 1 025 2024 Disconti nued(Dup licate (E-Cance l Not Sent)) topiramate (TOPAMAX) 25 mg tablet Take 1 Tablet by mouth nightly at bedtime for 28 days 28 Tablet 1 025 2024 Disconti nued(Reo rder (E-Cance l Not Sent)) tirzepatide, weight loss, (ZEPBOUND) 2.5 mg/0.5 mL pnijIndications:C lass 1 obesity due to excess calories without serious comorbidity with body mass index (BMI) of 33.0 to 33.9 in adult INJECT 2.5 MG SUBCUTANEOUSLY WEEKLY 2 mL 1 025 2024 Disconti nued(Exc hange, Therapeu tic) tirzepatide, weight loss, (ZEPBOUND) 5 mg/0.5 mL pnijIndications:C lass 1 obesity due to excess calories without serious comorbidity with body mass index (BMI) of 33.0 to 33.9 in adult,Body mass index 33.0-33.9, adult Inject 5 mg into the skin once a week. 2 mL 025 2024 Disconti nued(Res ource availabi lity/Cos t) Active Problems Problem Noted Date Diagnosed Date [...] POSITIVE POSITIVE VARZ QUANT >165 INDEX 1202.0 Overweight 11/19/2014 Flexural eczema 11/19/2014 Migraine with aura and witho ut status migrainosus, not intractable 11/19/2014 Resolved Problems Problem Noted Date Diagnosed Date Resolved Date Hyperthyroidism 12/14/2016 10/07/2024 Overview (12/14/2016): Increasing methimazole to 10mg a day. Repeat TFTs in 4 weeks, follow up in 2 months. Sees Chani López MD Encounters Date Type Department Care Team Description 10/15/2024 Results Follow-Up [address] [phone] Eduarda Crouch FNP 10/09/2024 Interim Notes [address] [phone] Ramonita Zhang [place] 10/07/2024 8:40 AM EDT Office Visit [address] [phone] Eduarda Crouch, KEVIN 09/09/2024 7:40 AM EDT Telemedicine Visit [address] [phone] Orin Caputo PA-C from Last 3 Months Immunizations Immunization Administration Dates Next Due DTAP (Infanrix) 11/12/1991, 8,1986,04/25,1986 HEP B, PED/ADOL (BDKFIGL-[id number]-ZHSF/RECOMBIVAX-PEDS) 10/13/1998,05/03/1998,01/14/1998 HPV, QUADRIVALENT 08/05/2008,10/21/2007 Hep A, adult 02/05/2024,08/06/2023 Hib (HbOC) 01/26/1988 INFLUENZA, SEASONAL, INJECTABLE 11/19/2014 IPV (IPOL) 11/12/1991, 8,1986,03/28 MENINGOCOCCAL MCV4P (MENACTRA) 10/21/2007 MMR (MMR II/Priorix) 09/10/1994,06/26/1987 TDAP 01/09/2017 Td (adult),2 Lf tetanus toxo id (TDVAX), preservative free 06/16/2003,01/10/1999 Varicella (Varivax), Live Vaccine 05/12/2018 Family History Medical History Relation Name Comments Asthma Father Heart Problems Maternal Grandfather of CA Colon Cancer Maternal Grandmother Depression Mother High Cholesterol Mother Hypertension Mother Other (See Comments) Mother pam dunn Breast cancer Paternal Aunt 1 4 Aunts [...] Sign Reading Time Taken Comments Blood Pressure 112/70 10/07/2024 8:57 AM EDT Pulse 67 10/07/2024 8:57 AM EDT Temperature 37.1 C (98.7 F) 10/07/2024 8:57 AM EDT Respiratory Rate 16 10/07/2024 8:57 AM EDT Oxygen Saturation 98% 10/07/2024 8:57 AM EDT Inhaled Oxygen Concentration - - Weight 91.2 kg (201 lb) 10/07/2024 8:57 AM EDT Height 165.1 cm (5' 5 ) 10/07/2024 8:57 AM EDT Body Mass Index 33.45 10/07/2024 8:57 AM EDT Plan of Treatment Upcoming Encounters Date Type Department Care Team (Late st Contact Info) Description 12/04/2024 5:00 PM EDT Office Visit [facility] [address] [place] [phone] Eduarda Crouch FNP [address] [place] [address] Health Maintenance Due Date Last Done Comments HPV Screening 1986 Breast Cancer Screening (Mammogram) 07/12/2023 07/11/2022 LTBI Screening (#1) 08/06/2024 08/07/2023 [id number] () 10/26/2024 Imm-Influenza (#1) 2024 11/19/2014 Relationship Safety Screening/Counseling 02/17/2025 02/18/2024, 12/05/2022, 05/01/2022, Additional history exists Annual Wellness (Adult): Indicated (All Coverage) 10/07/2025 10/07/2024, 08/06/2023, 05/01/2022, Additional history exists Anxiety Screening 10/07/2025 10/07/2024 Diabetes Screening 10/07/2025 10/07/2024, 0 10/07/2024, 08/07/2023, Additional history exists Hypertension Screening (#1) 10/07/2025 Tobacco Screening 10/30/2025 10/30/2024 Pap Smear 12/12/2025 12/12/2022, 07/0 08/2019, 03/03/2018, Additional history exists Imm-DTaP/Tdap/Td (6 - Td or Tdap) 01/09/2027 01/09/2017, 06/16/2003, 01/10/1999, Additional history exists Lipid Screening 10/08/2027 10/07/2024, 07/26, 05/25/2022, Additional history exists Cervical Cancer Screening 12/13/2027 Pap + HPV 12/13/2027 12/12/2022 Imm-Hepatitis B Discontinued 10/13/1998, 0310/1998, 01/14/1998 HIV Screening Completed 11/22/2014 Hepatitis C Screening Completed 05/12/2018, 015 Syphilis Screening Discontinued 05/25/2022, 11/22/2014 Imm-Hepatitis A Completed 02/05/2024, 08/06/2023 Alcohol and Drug Screen Completed 09/10/19 25, 02/18/2024, 05/01/2022, Additional history exists Depression Annual Screen Completed 025, 12/05/2016, 11/19/2014 Cervical Ablation/Cold-Knife Conization Discontinued Cervical Cryotherapy Discontinued Colposcopy Discontinued Endometrial Biopsy Discontinued Excision/Leep Discontinued HPV Genotyping Discontinued Vaginal Pap Discontinued Vulvoscopy Discontinued Procedures Procedure Name Priority Date/Time Associated Diagnosis Comments MEDICATIONS SCANNED DOCUMENT 10/08/2024 3:00 AM EDT RFLX - REFLEXIVE URINE CULTURE Routine 10/07/2024 9:17 AM EDT URINALYSIS, COMPLETE W/REFLEX TO CULTURE Routine 10/07/2024 9:17 AM EDT Routine general medical examination at a health care facility TSH W/RFLX FREE T4 Routine 10/07/2024 9: 17 AM EDT Routine general medical examination at a health care facility HGBA1C W/MPG Routine 10/07/2024 9:17 AM EDT Routine general medical examination at a health care facility LIPID PANEL Routine 10/07/2024 9:17 AM EDT Routine general medical examination at a health care facility COMPREHENSIVE METABOLIC PANEL Routine 10/07/2024 9:17 AM EDT Routine general medical examination at a health care facility BLOOD COUNT COMPLETE AUTO&AUTO DIFRNTL WBC Routine 10/07/2024 9:17 AM EDT Routine general medical examination at a health care facility REFERRAL TO PAIN MANAGEMENT Urgent 09/24/2024 3:00 AM EDT Right lumbar radiculopathy Chronic midline thoracic back pain Musculoskeletal neck pain Mechanical low back pain QUANTIFERON-TB GOLD PLUS Routine 08/07/2023 11:20 AM EDT Routine general medical examination at a health care facility Other headache syndrome Mid back pain Chronic bilateral low back pain without sciatica Chronic pain of right ankle PAP W/ HPV 12/12/2022 3:00 AM EDT HISTORIC MAMMOGRAM 07/11/2022 3: 00 AM EDT RPR W/RFLX TITER+FTA+CONF Routine 05/25/2022 11:36 AM EDT Routine general medical examination at a health care facility Routine screening for STI (sexually transmitted infection) HEPATITIS A,B,C PANEL Routine 05/12/2018 10:26 AM EDT Screen for STD (sexually transmitted disease) Physical exam ANTIBODY HIV-1&HIV-2 SINGLE RESULT Routine 11/22/2014 1:28 PM EDT Overweight from Last 3 Months or Most Recently Relevant to Health Maintenance Results * MEDICATIONS SCANNED DOCUMENT (10/08/2024 3:00 AM EDT) 10/08/2024 3:00 AM EDT Eduarda Crouch [employer] SCAN MEDS OTHER ORDERS Final R esult * (ABNORMAL) HGBA1C W/MPG Routine (10/07/2024 9:17 AM EDT) HEMOGLOBIN A1C 5.7(H) <5.7 % 10/08/2024 4:00 PM EDT [facility] MEAN PLASMA GLUCOSE 126 mg/dL (calc) 10/08/2024 4:00 PM EDT [facility] Blood Blood / Unknown 10/07/2024 9 :17 AM EDT 10/08/2024 2:58 AM EDT Narrative [facility] - 10/08/2024 4:05 PM EDT FASTING:YES For someone without known diabetes, a hemoglobin A1c value between 5.7% and 6.4% is consistent with prediabetes and should be confirmed with a follow-up test. . For someone with known diabetes, a value <7% indicates that their diabetes is well controlled. A1c targets should be individualized based on duration of diabetes, age, comorbid conditions, and other considerations. . This assay result is consistent with an increased risk of diabetes. . Currently, no consensus exists regarding use of hemoglobin A1c for diagnosis of diabetes for children. . [facility] LAB - BLOOD DRAW Final Result Performing Organization Address [facility] de Phone Number [employer] [address] [place] [address], [facility] [address] [address] * TSH W/RFLX FREE T4 Routine (10/07/2024 9:17 AM EDT) TSH W/REFLEX TO FT4 1.64 mIU/L 10/08/2024 4:54 AM EDT [employer] Blood Blood / Unknown 10/07/2024 9 :17 AM EDT 10/08/2024 3:03 AM EDT Narrative [facility] - 10/08/2024 5:19 AM EDT FASTING:YES Reference Range . > or = 20 Years 0.40-4.50 . Ranges First trimester 0.26-2.66 Second trimester 0.55-2.73 Third trimester 0.43-2.91 [facility] LAB - BLOOD DRAW Final Result Performing Organization Address [facility] Co de Phone Number [facility] [address] [address], [facility] [address] [address] * URINALYSIS, COMPLETE W/REFLEX TO CULTURE Urine Routine (10/07/2024 9:17 AM EDT) COLOR YELLOW YELLOW 10/08/2024 5:29 AM EDT [facility] APPEARANCE CLEAR CLEAR 10/08/2024 5:29 AM EDT [facility] [employer] SPECIFIC GRAVITY 1.022 1.001 - 1.035 10/08/2024 5:29 AM EDT [facility] URINE PH 5.5 5.0 - 8.0 10/08/2024 5:29 AM EDT [facility] GLUCOSE NEGATIVE NEGATIVE 10/08/2024 5:29 AM EDT [facility] BILIRUBIN NEGATIVE NEGATIVE 10/08/2024 5:29 AM EDT [facility] KETONES NEGATIVE NEGATIVE 10/08/2024 5:29 AM EDT [facility] OCCULT BLOOD NEGATIVE NEGATIVE 10/08/2024 5:29 AM EDT [facility] URINE PROTEIN NEGATIVE NEGATIVE 10/08/2024 5:29 AM EDT [facility] NITRITE NEGATIVE NEGATIVE 10/08/2024 5:29 AM EDT [facility] LEUKOCYTE ESTERASE NEGATIVE NEGATIVE 10/08/2024 5:29 AM EDT [facility] URINE LEUKOCYTES NONE SEEN 0 - 5 /HPF 10/08/2024 5:29 AM EDT [facility] RBC NONE SEEN 0 - 2 /HPF 10/08/2024 5:29 AM EDT [facility] SQUAMOUS EPITHELIAL CELLS 0-5 < OR = 5 /HPF 10/08/2024 5:29 AM EDT [facility] BACTERIA NONE SEEN NONE SEEN /HPF 10/08/2024 5:29 AM EDT [facility] HYALINE CAST NONE SEEN NONE SEEN /LPF 10/08/2024 5:29 AM EDT [facility] SEE NOTE SEE NOTE 10/08/2024 5:29 AM EDT [facility] Urine Urine specimen / Unknown 10/07/2024 9:17 AM EDT 10/08/2024 4:42 AM EDT Narrative [facility] - 10/08/2024 5:31 AM EDT FASTING:YES This urine was analyzed for the presence of WBC, RBC, bacteria, casts, and other formed elements. Only those elements seen were reported. . . us Eduarda Crouch [facility] URINE AMBULATORY Final Res ult [facility] [address] [address], [facility] [address] [place] [address] * RFLX - REFLEXIVE URINE CULTURE Routine (10/07/2024 9:17 AM EDT) Pathologist [facility] REFLEXIVE URINE CULTURE SEE NOTE 10/08/2024 5:29 AM EDT [facility] 10/07/2024 9:17 AM EDT 10/08/2024 4:42 AM EDT Narrative [facility] - 10/08/2024 5:31 AM EDT FASTING:YES NO CULTURE INDICATED Eduarda Crouch [facility] - MICROBIOLOGY AMBULATORY Final Result [facility] [address] [address], [facility] [address] [place] [address] * BLOOD COUNT COMPLETE AUTO&AUTO DIFRNTL WBC Routine (10/07/2024 9:17 AM EDT) [facility] WHITE BLOOD CELL COUNT 6.4 3.8 - 10.8 Thousand/ uL 10/08/2024 4:14 AM EDT [facility] RED BLOOD CELL COUNT 4.92 3.80 - 5.10 Million/u L 10/08/2024 4:14 AM EDT [facility] HEMOGLOBIN 13.8 11.7 - 15.5 g/dL 10/08/2024 4:14 AM EDT [facility] HEMATOCRIT 43.0 35.0 - 45.0 % 10/08/2024 4:14 AM EDT [facility] MCV 87.4 80.0 - 100.0 fL 10/08/2024 4:14 AM EDT [facility] MCH 28.0 27.0 - 33.0 pg 10/08/2024 4:14 AM EDT [facility] MCHC 32.1 32.0 - 36.0 g/dL 10/08/2024 4:14 AM EDT [facility] RDW 13.1 11.0 - 15.0 % 10/08/2024 4:14 AM EDT [facility] PLATELET COUNT 335 140 - 400 Thousand/ uL 10/08/2024 4:14 AM EDT [facility] MPV 10.2 7.5 - 12.5 fL 10/08/2024 4:14 AM EDT [facility] ABSOLUTE NEUTROPHILS 3,398 1,500 - 7,800 cells/uL 10/08/2024 4:14 AM EDT [facility] ABSOLUTE LYMPHOCYTES 2,349 850 - 3,900 cells/uL 10/08/2024 4:14 AM EDT [facility] ABSOLUTE MONOCYTES 525 200 - 950 cells/uL 10/08/2024 4:14 AM EDT [facility] ABSOLUTE EOSINOPHILS 90 15 - 500 cells/uL 10/08/2024 4:14 AM EDT [facility] ABSOLUTE BASOPHILS 38 0 - 200 cells/uL 10/08/2024 4:14 AM EDT [facility] NEUTROPHILS PCT 53.1 % 4:14 AM EDT [facility] LYMPHOCYTES 36.7 % 10/08/2024 4:14 AM EDT [facility] MONOCYTES 8.2 % 10/08/2024 4:14 AM EDT [facility] EOSINOPHILS 1.4 % 10/08/2024 4:14 AM EDT [facility] BASOPHILS 0.6 % 10/08/2024 4:14 AM EDT [facility] Blood Blood / Unknown 10/07/2024 9 :17 AM EDT 10/08/2024 2:58 AM EDT Narrative [facility] - 10/08/2024 4:32 AM EDT FASTING:YES For adults, a slight decrease in the calculated MCHC value (in the range of 30 to 32 g/dL) is most likely not clinically significant; however, it should be interpreted with caution in correlation with other red cell parameters and the patient's clinical condition. Eduarda Crouch [facility] LAB - BLOOD DRAW Final Result [facility] [address] [address], [facility] [address] [address] * (ABNORMAL) LIPID PANEL Routine (10/07/2024 9:17 AM EDT) CHOLESTEROL, TOTAL 177 <200 mg/dL 10/08/2024 4:45 AM EDT [facility] HDL CHOLESTEROL 58 > OR = 50 mg/dL 10/08/2024 4:45 AM EDT [facility] TRIGLYCERIDES 88 <150 mg/dL 10/08/2024 4:45 AM EDT [facility] LDL-CHOLESTEROL 101(H) mg/dL (calc) 10/08/2024 4:45 AM EDT [facility] CHOL/HDLC RATIO 3.1 <5.0 (calc) 10/08/2024 4:45 AM EDT [facility] NON-HDL CHOLESTEROL 119 <130 mg/dL (calc) 10/08/2024 4:45 AM EDT [facility] Blood Blood / Unknown 10/07/2024 9 :17 AM EDT 10/08/2024 3:03 AM EDT Narrative [facility] - 10/08/2024 4:49 AM EDT FASTING:YES Reference range: <100 . Desirable range <100 mg/dL for primary prevention; <70 mg/dL for patients with CHD or diabetic patients with > or = 2 CHD risk factors. . LDL-C is now calculated using the David-Kamron calculation, which is a validated novel method providing better accuracy than the Friedewald equation in the estimation of LDL-C. David PINO et al. MICKY. 2013;310(19): 0328-3754 (http://education.Y[employer] Club.Serious Parody/faq/PRS295) For patients with diabetes plus 1 major ASCVD risk factor, treating to a non-HDL-C goal of <100 mg/dL (LDL-C of <70 mg/dL) is considered a therapeutic option. Eduarda Crouch [facility] LAB - BLOOD DRAW Final Result [facility] [address] [address], [facility] [address] [address] * (ABNORMAL) COMPREHENSIVE METABOLIC PANEL Routine (10/07/2024 9:17 AM EDT) Pathologist [facility] GLUCOSE 101(H) 65 - 99 mg/dL 10/08/2024 4:45 AM [email or web address] UREA NITROGEN (BUN) 12 7 - 25 mg/dL 10/08/2024 4:45 AM [email or web address] CREATININE (blood) 0.85 0.50 - 0.97 mg/dL 10/08/2024 4:45 AM [email or web address] [facility] EGFR 90 > OR = 60 mL/min/1. 73m2 10/08/2024 4:45 AM [email or web address] BUN/CREATININE RATIO SEE NOTE: 6 - 22 (calc) 10/08/2024 4:45 AM [email or web address] SODIUM 137 135 - 146 mmol/L 10/08/2024 4:45 AM [email or web address] POTASSIUM 4.7 3.5 - 5.3 mmol/L 10/08/2024 4:45 AM [email or web address] CHLORIDE 106 98 - 110 mmol/L 10/08/2024 4:45 AM [email or web address] CARBON DIOXIDE 23 20 - 32 mmol/L 10/08/2024 4:45 AM [email or web address] CALCIUM 8.8 8.6 - 10.2 mg/dL 10/08/2024 4:45 AM [email or web address] PROTEIN, TOTAL 7.7 6.1 - 8.1 g/dL 10/08/2024 4:45 AM [email or web address] ALBUMIN 4.3 3.6 - 5.1 g/dL 10/08/2024 4:45 AM [email or web address] GLOBULIN 3.4 1.9 - 3.7 g/dL (calc) 10/08/2024 4:45 AM [email or web address] ALBUMIN/GLOBULI N RATIO 1.3 1.0 - 2.5 (calc) 10/08/2024 4:45 AM [email or web address] BILIRUBIN, TOTAL 0.4 0.2 - 1.2 mg/dL 10/08/2024 4:45 AM [email or web address] ALKALINE PHOSPHATASE 90 31 - 125 U/L 10/08/2024 4:45 AM [email or web address] AST 33(H) 10 - 30 U/L 10/08/2024 4:45 AM [email or web address] ALT 45(H) 6 - 29 U/L 10/08/2024 4:45 AM EDT [facility] Blood Blood / Unknown 10/07/2024 9 :17 AM EDT 10/08/2024 3:03 AM EDT Narrative [facility] - 10/08/2024 4:49 AM EDT FASTING:YES . Fasting reference interval . For someone without known diabetes, a glucose value between 100 and 125 mg/dL is consistent with prediabetes and should be confirmed with a follow-up test. . Not Reported: BUN and Creatinine are within reference range. . Eduarda Crouch [facility] LAB - BLOOD DRAW Final Result [facility] [employer] [address] [place] [address], [facility] [address] [address] * REFERRAL TO PAIN MANAGEMENT (09/24/2024 3:00 AM EDT) 09/24/2024 3:00 AM EDT Orin Caputo PA-C REFERRAL Final Result * QUANTIFERON-TB GOLD PLUS (08/07/2023 11:20 AM EDT) [facility] QUANTIFERON NEGATIVE NEGATIVE [facility] Comment: Negative test result. M. tuberculosis complex infection unlikely. NIL 0.02 IU/mL [facility] MITOGEN-NIL >10.00 IU/mL [facility] TB1-NIL 0.00 IU/mL [facility] TB2-NIL 0.00 IU/mL [facility] Comment: The Nil tube value reflects the [...] T-lymphocytes. For additional information, please refer to https://education.SecureWave/faq/IFT778 (This link is being provided for informational/ educational purposes only.) Blood Blood / Unknown 08/07/2023 1 1:20 AM EDT 08/07/2023 11:21 AM EDT Narrative [facility] - 08/11/2023 4:40 PM EDT FASTING:NO Eduarda [facility] LAB - BLOOD DRAW Final Result [facility] [address] [address], [facility] [address] [address] * PAP W/ HPV (12/12/2022 3:00 AM EDT) 12/12/2022 3:00 AM EDT [facility] LAB - PATHOLOGY AND CYTOLOGY A MBULATORY Final Result * HISTORIC MAMMOGRAM (07/11/2022 3:00 AM EDT) 07/11/2022 3:00 AM EDT [facility] IMG MAMMO Edited Result - Final * RPR W/RFLX TITER+FTA+CONF (05/25/2022 11:36 AM EDT) RPR (DX) W/REFL TITER AND CONFIRMATORY TESTING NON-REACT [facility]AD NON-REACT HAMMAD [facility] Blood Blood / Unknown 05/25/2022 1 1:36 AM EDT 05/25/2022 11:37 AM EDT Eduarda Gurung [facility] LAB - BLOOD DRAW Final Result Performing Organization Address [facility] Co de Phone Number [facility] [address] [address], [facility] [address] [address] * (ABNORMAL) HEPATITIS A,B,C PANEL (05/12/2018 10:26 AM EDT) HEPATITIS B SURFACE ANTIBODY POSITIVE(A) NEGATIVE [facility] HEPATITIS B SURFACE ANTIGEN NEGATIVE NEGATIVE [facility] Comment: Over the counter supplements containing high doses of biotin may interfere with this assay. If interference is suspected, patients shoud be retested after refraining from biotin supplements for 72 hours. HEPATITIS C VIRUS DIAGNOSTIC NEGATIVE NEGATIVE [facility] HEPATITIS B CORE ANTIBODY NEGATIVE NEGATIVE [facility] HEPATITIS A ANTIBODY TOTAL NEGATIVE NEGATIVE [facility] Comment: Over the counter supplements containing high doses of biotin may interfere with this assay. If interference is suspected, patients shoud be retested after refraining from biotin supplements for 72 hours. Blood specimen (specimen) Blood / Unknown 05/12/2018 10:26 AM EDT 05/12/2018 11:56 AM EDT Narrative [facility] - 05/12/2018 4:22 PM EDT [employer], [place] [address] Sales Merchandise Associate - Bonnie Kate MD PT ID [id number] ORD# [id number] [place] Veronica NP LAB - BLOOD DRAW Edited Res ult - Final Performing Organization Address City/[facility]/ZIP Co de Phone Number [address] [address], * HIV-1 & HIV-2 ANTIBODIES (11/22/2014 1:28 PM EDT) HIV 1 AND 2 ANTIBODY SCREEN NEGATIVE NEGATIVE [facility] Comment: Effective 11/02/14, [employer] has replaced the HIV screening test with [...] 1:28 PM EDT 11/22/2014 1:28 PM EDT [facility] [facility] - 11/22/2014 7:47 PM EDT [employer] [address] [place] [address] PT ID [id number] IMPERIAL# [id number] Sherlyn Blancas [facility] LAB - BLOOD DRAW Final Resu lt [facility] [address] [place] [address], from Last 3 Months or Most Recently Relevant to Health Maintenance [place] Care Teams Master Automotive Technician Relationship Specialty Start Date End Date Eduarda Crouch FNP [address] [place] [address] PCP - General Internal Medicine 10/13/18
== END 2024-10-31 19:04 | disposition home or self-care (01) ==
LOC: HO.MRI 19:03
PROVIDERS: Visit Provider Nurse Practitioner Family
DX: M54.41 Lumbago with sciatica, right side (principal); G89.29 Other chronic pain; Z87.828 Personal history of other (healed) physical injury and trauma; M62.830 Muscle spasm of back; M54.16 Radiculopathy, lumbar region
CPT/HCPCS: 72148

== ENCOUNTER → 2024-10-31 19:13 | Outpatient (BNV) | payer MEDICAID, SELFPAY | PROVIDERS: Visit Provider Radiology Diagnostic Radiology | DX: M54.41 Lumbago with sciatica, right side (principal) | CPT/HCPCS: 72148 ==

== ENCOUNTER 2024-12-24 08:15 | Outpatient (AMB) | payer MEDICAID, SELFPAY ==
--- OUTSIDE RECORDS SUMMARY | 2020-11-16 09:16 | XMS_ITS | Continuity of Care Document ---
Author Organization [facility] Address [address] [place] [address] Care Team Providers Care Physical Therapist Aide Name Role Phone Anatoliy Martienz MD Unavailable Unavailable Allergies, Adverse Reactions, Alerts Substance Reaction Status Criticality No Known Allergies Active No Inform ation Advance Directives Directive Yes / No Effective Date File Name No Information Encounters Encounter Description Practice Location Reason(s) For Visit Diagnoses Date Provider Providers Copied on Encounter [facility], [address] [place] [address], [facility] No Information 1 Juan Cope. [address] [facility], [address], [address], [place]. tel:[phone] [facility], [address] [place] [address], [facility], [facility] Information 1 Lucille Traore. [address] [facility], [address], [address], [place]. tel:[phone] Family History Family Member Type Diagnosis Age At Onset Problem No family histor y of Coronary artery disease, premature Payers Payer name Insurance type Covered libertarian ID Authoriza tion(s) No Information Social History Type Description Quantity Date Captured Comments Alcohol Use Details Unknown Caffeine Use Details Unknown Tobacco Use Status No Information Smoking Status No Information Sex Female Chief Complaint And Reason For Visit No Information Reason For Referral Reason For Referral No Information History Of Present Illness Encounter Date Complaint History Of Prese nt Illness No Information Functional Status Date Functional Assessmen t No Information Instructions Date Instruction Additional Infor mation No Information Assessments Type Assessment Date No Information Patient Care Teams Name Effective Dates (start - stop) Status Members No Information
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
[2024-12-24 08:21] VITALS: BP 143/76; PULSE 76; O2SAT 99; BMI 33.7
--- OUTSIDE RECORDS SUMMARY | 2024-12-24 08:50 | XMS_ITS | Clinical Summary ---
Author Organization [address] [place] [address] [place] [id number] Phone Care Team Providers Care Security Services Manager Name Role Phone Eduarda Crouch MEDICAL EXAMINER Primary Care Provider [phone] Allergies No known active allergies Medications ketorolac (TORADOL) 10 mg tablet Take 1 tablet (10 mg total) by mouth every 6 (six) hours if needed for moderate pain for up to 5 days. 20 tablet 11/27/19 25 Active Problems No known active problems Encounters Date Type Department Care Team Description 11/21/2024 8:02 PM EDT - 11/21/2024 10:20 PM EDT Emergency [facility] [address] [place] [address] Acute low back pain due to trauma (Primary Dx) Discharge Disposition: Home or Self Care from Last 3 Months Surgical History Surgery Date Site/Laterality Comments OTHER SURGICAL HISTORY 2003 PROCEDURE: GA DILATION & CURETTAGE DX&/THER NONOBSTETRIC; COMMENT: AFTER [...] Sexual Orientation Not on file Obstetrics History Last Filed Vital Signs Vital Sign Reading Time Taken Comments Blood Pressure 121/84 11/21/2024 10:19 PM EDT Pulse 75 11/21/2024 10:19 PM EDT Temperature 37.2 C (98.9 F) 11/21/2024 10:19 PM EDT Respiratory Rate 18 11/21/2024 10:19 PM EDT Oxygen Saturation 98% 11/21/2024 10:19 PM EDT Inhaled Oxygen Concentration - - Weight 86.2 kg (190 lb) 11/21/2024 7:41 PM EDT Height 165.1 cm (5' 5 ) 11/21/2024 7:41 PM EDT Body Mass Index 31.62 11/21/2024 7:41 PM EDT Plan of Treatment Health Maintenance Due Date Last Done Comments Cervical Cancer Screening: Pap Smear 2007 HPV Vaccines (3 - 3-dose series) 10/28/2008 08/05/2008, 10/21/2007 Hepatitis C Screening 12/18/2023 Social Influencers of Health Screening 12/18/2023 Depression Screening 02/26/2024 COVID-19 Vaccine ( - season) 2024 Influenza Vaccine (#1) 2024 11/19/2014 DTaP,Tdap,and Td Vaccines (10 - Td or Tdap) 01/09/2027 01/09/2017, 10/21/2007, 06/16/2003, Additional history exists Cholesterol Screening (Lipid Panel) 10/07/2029 10/07/2024, 10/07/2024, 08/07/2023, Additional history exists RSV Immunization Adult Patients (1 - 1-dose 75+ series) 2061 HIB Vaccines Completed 01/26/1988, 01/26/1988 IPV Vaccines Completed 11/12/1991, 1202/1987, 09/26/1987, Additional history exists MMR Vaccines Completed 09/10/1994, 06/26/1987 Hepatitis B Vaccines Completed 10/13/1998, 05/03/1998, 01/14/1998 Meningococcal ACWY Vaccine Aged Out 10/21/2007 N o longer eligible based on patient's age to complete this topic HIV Screening Completed 11/22/2014 Varicella Vaccines Aged Out 05/12/2018 No longer eligible based on patient's age to complete this topic Hepatitis A Vaccines Aged Out 02/05/2024, 08/06/19 24 No longer eligible based on patient's age to complete this topic Meningococcal B Vaccine Aged Out No l onger eligible based on patient's age to complete this topic Pneumococcal Vaccine: Pediatrics (0 to 5 Years) and At-Risk Patients (6 to 49 Years) Aged Out No longer eligible based on patient's age to complete this topic RSV Immunization Patients Under 20 months Aged Out No longer eligible based on patient's age to complete this topic Insurance MEDICAID - [place] Care Teams Security Services Manager Relationship Specialty Start Date End Date Eduarda Crouch NP [address] [place] [address] PCP - General Nurse Practitioner 11/21/24
--- OUTSIDE RECORDS SUMMARY | 2024-12-24 08:50 | XMS_ITS | Clinical Summary ---
Author Organization [facility] Address [address] [place] [address] Care Team Providers Care Workflow Developer Name Role Phone Eduarda Crouch [facility] Primary Care Provider [phone] Source Comments PLEASE NOTE, if this patient [...] as needed for hemorrhoids 30 Suppository 1 08/04/19 21 Active lidocaine-priloca ine (EMLA) 2.5-2.5 % creamIndications: Hemorrhoids, unspecified hemorrhoid type Apply topically 2 (two) times daily as needed for pain or other reason (rectal pain) 30 g 2 08/04/19 21 Active biotin 5 mg tabIndications:[place] ir thinning Take 5 Tablets by mouth once daily 90 Tablet 1 06/07/19 23 Active minoxidiL (ROGAINE) 2 % external solutionIndicatio ns:Hair thinning Apply topically 2 (two) times daily For hair 60 mL 2 06/07/19 23 Active MISCELLANEOUS MEDICAL SUPPLY MISCIndications:C hronic pain of right ankle,Primary osteoarthritis of right ankle Short cam-walker boot for rt foot. Use daily. Need: 1 year 1 Each 1 06/14/19 23 Active MISCELLANEOUS MEDICAL SUPPLY MISCIndications:C hronic pain of right ankle,Primary osteoarthritis of right ankle Order heating/coolin g pad, use daily. Need lifetime 2 Each 2 06/14/19 23 Active MISCELLANEOUS MEDICAL SUPPLY MISCIndications:P ost-traumatic osteoarthritis of right ankle,Chronic pain of right ankle Order cane. Use daily. Need lifetime. 1 Each 1 10/12/19 23 Active butalbital-acetam inophen-caff 50-325-40 mg per tabletIndications :Other headache syndrome Take 2 Tablets by mouth 2 (two) times daily as needed for headaches 30 Tablet 08/06/19 24 Active triamcinolone (KENALOG) 0.5 % ointmentIndicatio ns:Routine general medical examination at a health care facility Apply topically 2 (two) times daily For elbow eczema 30 g 2 08/06/19 24 Active acetaminophen (TYLENOL) 500 mg tabletIndications :Chronic bilateral low back pain without sciatica Take 2 Tablets by mouth every 8 (eight) hours as needed for pain Max 6 tabs per day 60 Tablet 1 02/18/20 24 Active lidocaine (LIDODERM) 5 % patchIndications: Right lumbar radiculopathy,Chr onic midline thoracic back pain,Musculoskele julio neck pain,Mechanical low back pain Place 1 Patch onto the skin daily Apply 1 patch to the affected area for a maximum of 12 hours, followed by removal for 12 hours.. 30 Patch 2 09/10/19 25 Active naproxen sodium (ANAPROX) 550 mg tabletIndications :Right lumbar radiculopathy,Chr onic midline thoracic back pain,Musculoskele julio neck pain,Mechanical low back pain Take 1 Tablet by mouth 2 (two) times daily with a meal. 180 Tablet 1 09/10/19 25 Active diclofenac sodium (VOLTAREN) [address] tablet Take 75 mg by mouth 2 (two) times daily as needed for other reason (pain). 09/25/19 25 Active hydrocortisone 0.5 % creamIndications: Rash Apply topically 2 (two) times daily At left arm. 30 g 1 10/08/19 25 Active SUMAtriptan succinate (IMITREX) 100 mg tabletIndications :Migraine with aura and without status migrainosus, not intractable Take 1 Tablet by mouth once daily as needed for migraine If not better in 1 hour then take 1 more tab. Max 2 tabs per day.. 15 Tablet 1 10/31/19 25 Active phentermine (ADIPEX-P) 37.5 mg tabletIndications :Body mass index 33.0-33.9, adult Take 1 Tablet by mouth every morning before breakfast (Increase in dose). Max Daily Amount: 37.5 mg 30 Tablet 12/05/19 25 Active topiramate (TOPAMAX) 50 mg tabletIndications :Migraine with aura and without status migrainosus, not intractable Take 1 Tablet by mouth nightly at bedtime (Increase in dose). 30 Tablet 2 12/05/19 25 Active meloxicam (MOBIC) 15 mg tabletIndications :Migraine with aura and without status migrainosus, not intractable,Chron ic pain of right ankle,Body mass index 33.0-33.9, adult,Hx of falling Take 1 Tablet by mouth once daily as needed for pain. 30 Tablet 2 12/05/19 25 Active traMADoL (ULTRAM) 50 mg tabletIndications :Migraine with aura and without status migrainosus, not intractable,Chron ic pain of right ankle,Body mass index 33.0-33.9, adult,Hx of falling Take 1 Tablet by mouth 2 (two) times daily as needed for pain. Max Daily Amount: 100 mg 30 Tablet 12/05/19 25 Active topiramate (TOPAMAX) 25 mg tabletIndications :Migraine with aura and without status migrainosus, not intractable Take 1 Tablet by mouth nightly at bedtime for 28 days. 28 Tablet 1 10/31/19 25 025 Disconti nued(Exc hange, Therapeu tic) phentermine (IONAMIN) 15 mg capsuleIndication s:Class 1 obesity due to excess calories without serious comorbidity with body mass index (BMI) of 33.0 to 33.9 in adult,Body mass index 33.0-33.9, adult TAKE 1 CAPSULE BY MOUTH EVERY MORNING FOR OBESITY. MAX DAILY AMOUNT: 15 MG 30 Capsule 11/24/19 25 025 Disconti nued(Ine ffective therapy) Active Problems Problem Noted Date Diagnosed Date [...] Encounters Date Type Department Care Team Description 12/04/2024 5:00 PM EDT Office Visit [address] [phone] Eduarda Crouch FNP 10/15/2024 Results Follow-Up [address] [phone] Eduarda Crouch FNP 10/09/2024 Interim Notes [address] [phone] Ramonita Zhang [place] 10/07/2024 8:40 AM EDT Office Visit [address] [address] Eduarda Crouch FNP from Last 3 Months Immunizations Immunization Administration Dates Next Due DTAP (Infanrix) 11/12/1991, 8,1986,04/25,1986 HEP B, PED/ADOL (IRMVCOL-V-KBGR/RECOMBIVAX-PEDS) 10/13/1998,05/03/1998,01/14/1998 HPV, QUADRIVALENT 08/05/2008,10/21/2007 Hep A, adult 02/05/2024,08/06/2023 Hib (HbOC) 01/26/1988 INFLUENZA, SEASONAL, INJECTABLE 11/19/2014 IPV (IPOL) 11/12/1991, 8,1986,03/28 MENINGOCOCCAL MCV4P (MENACTRA) 10/21/2007 MMR (MMR II/Priorix) 09/10/1994,06/26/1987 TDAP 01/09/2017 Td (adult),2 Lf tetanus toxo id (TDVAX), preservative free 06/16/2003,01/10/1999 Varicella (Varivax), Live Vaccine 05/12/2018 Family History Medical History Relation Name Comments Asthma Father Heart Problems Maternal Grandfather of [place] Colon Cancer Maternal Grandmother Depression Mother High [...] Sign Reading Time Taken Comments Blood Pressure 114/72 12/04/2024 4:50 PM EDT Pulse 76 12/04/2024 4:50 PM EDT Temperature 37.3 C (99.1 F) 12/04/2024 4:50 PM EDT Respiratory Rate 16 12/04/2024 4:50 PM EDT Oxygen Saturation 98% 12/04/2024 4:50 PM EDT Inhaled Oxygen Concentration - - Weight 92.5 kg (204 lb) 12/04/2024 4:50 PM EDT Height 165.1 cm (5' 5 ) 12/04/2024 4:50 PM EDT Body Mass Index 33.95 12/04/2024 4:50 PM EDT Plan of Treatment Health Maintenance Due Date Last Done Comments HPV Screening (self-collect) 1986 HPV Screening 1986 Imm-HPV (3 - 3-dose series) 10/28/2008 08/05/2008, 0 10/21/2007 Breast Cancer Screening (Mammogram) 07/12/2023 07/11/2022 LTBI Screening (#1) 08/06/2024 08/07/2023 [id number] ( season) 2024 Imm-Influenza (#1) 2024 11/19/2014 Relationship Safety Screening/Counseling 02/17/2025 02/18/2024, 12/05/2022, 05/01/2022, Additional history exists Annual Wellness (Adult): Indicated (All Coverage) 10/07/2025 10/07/2024, 08/06/2023, 05/01/2022, Additional history exists Anxiety Screening 10/07/2025 10/07/2024 Diabetes Screening 10/07/2025 10/07/2024, 0 10/07/2024, 08/07/2023, Additional history exists Hypertension Screening (#1) 12/04/2025 Tobacco Screening 12/04/2025 12/04/2024 Pap Smear 12/12/2025 12/12/2022, 07/0 08/2019, 03/03/2018, Additional history exists Imm-DTaP/Tdap/Td (6 - Td or Tdap) 01/09/2027 01/09/2017, 06/16/2003, 01/10/1999, Additional history exists Lipid Screening 10/08/2027 10/07/2024, 07/26, 05/25/2022, Additional history exists Cervical Cancer Screening 12/13/2027 Pap + HPV 12/13/2027 12/12/2022 Imm-Hepatitis B Discontinued 10/13/1998, 10/1998, 01/14/1998 HIV Screening Completed 11/22/2014 Hepatitis C Screening Completed 05/12/2018, 015 Syphilis Screening Discontinued 05/25/2022, 11/22/2014 Imm-Hepatitis A Completed 02/05/2024, 08/06/2023 Alcohol and Drug Screen Completed 09/10/19 25, 02/18/2024, 05/01/2022, Additional history exists Depression Annual Screen Completed 025, 12/05/2016, 11/19/2014 Cervical Ablation/Cold-Knife Conization Discontinued Cervical Cryotherapy Discontinued Colposcopy Discontinued Excision/Leep Discontinued HPV Genotyping Discontinued Vaginal Pap Discontinued Vulvoscopy Discontinued Procedures Procedure Name Priority Date/Time Associated Diagnosis Comments XR ANKLE 3+V Routine 12/23/2024 1:58 PM EDT Chronic pain of right ankle Hx of falling OTHER ORDERS SCANNED DOCUMENT 11/25/2024 3:00 AM EDT OTHER ORDERS SCANNED DOCUMENT 11/17/2024 3:00 AM EDT MEDICATIONS SCANNED DOCUMENT 10/08/2024 3:00 AM EDT [...] Recently Relevant to Health Maintenance Results * XR ANKLE 3+V (12/23/2024 1:58 PM EDT) 12/23/2024 1:[address] [facility] DI[facility]NO[facility]IC IM[facility] - 12/24/2024 7:54 AM EDT IMPRESSION: No acute osseous abnormality. Liliya Barbour MD Signed by Liliya Barbour MD Read by: LILIYA BARBOUR MD Reviewed and Electronically Signed by: LILIYA BARBOUR MD [facility] DIAGNOSTIC IMAGING - 12/24/2024 7:54 AM EDT Original Report PROCEDURE: XR RIGHT ANKLE 3 views INDICATION: Right ankle pain. TECHNIQUE: Three views of the right ankle. COMPARISON: MR Ankle Right 09/29/2021. FINDINGS: There is no displaced fracture. The alignment is anatomic. No soft tissue abnormality is seen. Procedure Note Default, [facility] Provider - 12/24/2024 Original Report PROCEDURE: XR RIGHT ANKLE 3 views INDICATION: Right ankle pain. TECHNIQUE: Three views of the right ankle. COMPARISON: MR Ankle Right 09/29/2021. FINDINGS: There is no displaced fracture. The alignment is anatomic. No soft tissue abnormality is seen. IMPRESSION: IMPRESSION: No acute osseous abnormality. Liliya Barbour MD Signed by Liliya Barbour MD Read by: LILIYA BARBOUR MD Reviewed and Electronically Signed by: LILIYA BARBOUR MD Eduarda Crouch [facility] XRAY Final Result [facility] Corporate Office [address], [address] [place] [address], [place] [phone] * OTHER ORDERS SCANNED DOCUMENT (11/25/2024 3:00 AM EDT) Only the most recent of2 resultswithin the time period is included. 11/25/2024 3:00 AM EDT Eduarda Crouch [facility] SCAN OTHER ORDERS Final Result * MEDICATIONS SCANNED DOCUMENT (10/08/2024 3:00 AM EDT) 10/08/2024 3:00 AM EDT Eduarda Crouch [facility] SC[facility] MEDS OTHER ORDERS Final R esult * (ABNORMAL) HGBA1C W/MPG Routine (10/07/2024 9:17 AM EDT) HEMOGLOBIN A1C 5.7(H) <5.7 % 10/08/2024 4:00 PM EDT [facility] MEAN PLASMA GLUCOSE 126 mg/dL (calc) 10/08/2024 4:00 PM EDT [facility] Blood Blood / Unknown 10/07/2024 9 :17 AM EDT 10/08/2024 2:58 AM EDT Narrative [facility] - 10/08/2024 4:05 PM EDT FASTING:YES For [...] for diagnosis of diabetes for children. . [facility] - [facility]OD DRAW Final Result Performing Organization Address [facility] de Phone Number [employer] [address] [address], [facility] [address] [address] * TSH W/RFLX FREE T4 Routine (10/07/2024 9:17 AM EDT) TSH W/REFLEX TO FT4 1.64 mIU/L 10/08/2024 4:54 AM EDT [employer] Blood Blood / Unknown 10/07/2024 9 :17 AM EDT 10/08/2024 3:03 AM EDT Narrative [employer] - 10/08/2024 5:19 AM EDT FASTING:YES Reference Range . > or = 20 Years 0.40-4.50 . Ranges First trimester 0.26-2.66 Second trimester 0.55-2.73 Third trimester 0.43-2.91 Eduarda [facility] - BLOOD DRAW Final Result Performing Organization Address [facility] de Phone Number [employer] [address] [address], [employer] [address] [address] * URINALYSIS, COMPLETE W/REFLEX TO CULTURE Urine Routine (10/07/2024 9:17 AM EDT) COLOR YELLOW YELLOW 10/08/2024 5:29 AM EDT [employer] APPEARANCE CLEAR CLEAR 10/08/2024 5:29 AM EDT [employer] SPECIFIC GRAVITY 1.022 1.001 - 1.035 10/08/2024 5:29 AM EDT [employer] URINE PH 5.5 5.0 - 8.0 10/08/2024 5:29 AM EDT [facility] GLUCOSE NEGATIVE NEGATIVE 10/08/2024 5:29 AM EDT [facility] BILIRUBIN NEGATIVE NEGATIVE 10/08/2024 5:29 AM EDT [facility] KETONES NEGATIVE NEGATIVE 10/08/2024 5:29 AM EDT [facility] OCCULT BLOOD NEGATIVE NEGATIVE 10/08/2024 5:29 AM EDT [facility] URINE PROTEIN NEGATIVE NEGATIVE 10/08/2024 5:29 AM EDT [facility] NITRITE NEGATIVE NEGATIVE 10/08/2024 5:29 AM EDT [facility] LEUKOCYTE ESTERASE NEGATIVE NEGATIVE 10/08/2024 5:29 AM EDT [facility] URINE LEUKOCYTES NONE SEEN 0 - 5 /HPF 10/08/2024 5:29 AM EDT [facility] RBC NONE SEEN 0 - 2 /HPF 10/08/2024 5:29 AM EDT [facility] SQUAMOUS EPITHELIAL CELLS 0-5 < OR = 5 /HPF 10/08/2024 5:29 AM EDT [facility] BACTERIA NONE SEEN NONE SEEN /HPF 10/08/2024 5:29 AM EDT [facility] HYALINE CAST NONE SEEN NONE SEEN /LPF 10/08/2024 5:29 AM EDT [facility] SEE NOTE SEE NOTE 10/08/2024 5:29 AM EDT [facility] Urine Urine specimen / Unknown 10/07/2024 9:17 AM EDT 10/08/2024 4:42 AM EDT Narrative [facility] - 10/08/2024 5:31 AM EDT FASTING:YES This urine was analyzed for the presence of WBC, RBC, bacteria, casts, and other formed elements. Only those elements seen were reported. . . us Eduarda Crouch [facility] URINE AMBULATORY Final Res ult [facility] [address] [address], [facility] [address] [address] * RFLX - REFLEXIVE URINE CULTURE Routine (10/07/2024 9:17 AM EDT) Pathologist [facility] REFLEXIVE URINE CULTURE SEE NOTE 10/08/2024 5:29 AM EDT [facility] 10/07/2024 9:17 AM EDT 10/08/2024 4:42 AM EDT Narrative [facility] - 10/08/2024 5:31 AM EDT FASTING:YES NO CULTURE INDICATED Eduarda Santanakanujennifer [facility] LAB - MICROBIOLOGY AMBULATORY Final Result [facility] [address] [address], [facility] [address] [place] [address] * BLOOD COUNT COMPLETE AUTO&AUTO DIFRNTL WBC Routine (10/07/2024 9:17 AM EDT) [facility] WHITE BLOOD CELL COUNT 6.4 3.8 - 10.8 Thousand/ uL 10/08/2024 4:14 AM [employer] [facility] RED BLOOD CELL COUNT 4.92 3.80 - 5.10 Million/u L 10/08/2024 4:14 AM [employer] [facility] HEMOGLOBIN 13.8 11.7 - 15.5 g/dL 10/08/2024 4:14 AM [employer] [facility] HEMATOCRIT 43.0 35.0 - 45.0 % 10/08/2024 4:14 AM [employer]KnowledgeTree [facility] MCV 87.4 80.0 - 100.0 fL 10/08/2024 4:14 AM [employer] [facility] MCH 28.0 27.0 - 33.0 pg 10/08/2024 4:14 AM [employer] [facility] MCHC 32.1 32.0 - 36.0 g/dL 10/08/2024 4:14 AM [employer] [facility] RDW 13.1 11.0 - 15.0 % 10/08/2024 4:14 AM [employer] [facility] PLATELET COUNT 335 140 - 400 Thousand/ uL 10/08/2024 4:14 AM [employer] [facility] MPV 10.2 7.5 - 12.5 fL 10/08/2024 4:14 AM [employer] [facility] ABSOLUTE NEUTROPHILS 3,398 1,500 - 7,800 cells/uL 10/08/2024 4:14 AM EDT [facility] ABSOLUTE LYMPHOCYTES 2,349 850 - 3,900 cells/uL 10/08/2024 4:14 AM EDT [facility] ABSOLUTE MONOCYTES 525 200 - 950 cells/uL 10/08/2024 4:14 AM EDT [facility] ABSOLUTE EOSINOPHILS 90 15 - 500 cells/uL 10/08/2024 4:14 AM EDT [facility] ABSOLUTE BASOPHILS 38 0 - 200 cells/uL 10/08/2024 4:14 AM EDT [facility] NEUTROPHILS PCT 53.1 % 4:14 AM EDT [facility] LYMPHOCYTES 36.7 % 10/08/2024 4:14 AM EDT [facility] MONOCYTES 8.2 % 10/08/2024 4:14 AM EDT [facility] EOSINOPHILS 1.4 % 10/08/2024 4:14 AM EDT [facility] BASOPHILS 0.6 % 10/08/2024 4:14 AM EDT [facility] Blood Blood / Unknown 10/07/2024 9 :17 AM EDT 10/08/2024 2:58 AM EDT Narrative [facility] - 10/08/2024 4:32 AM EDT FASTING:YES For adults, a slight decrease in the calculated MCHC value (in the range of 30 to 32 g/dL) is most likely not clinically significant; however, it should be interpreted with caution in correlation with other red cell parameters and the patient's clinical condition. Eduarda Crouch [facility] LAB - BLOOD DRAW Final Result [facility] [address] [address], [facility] [address] [address] * (ABNORMAL) LIPID PANEL Routine (10/07/2024 9:17 AM EDT) CHOLESTEROL, TOTAL 177 <200 mg/dL 10/08/2024 4:45 AM EDT [facility] HDL CHOLESTEROL 58 > OR = 50 mg/dL 10/08/2024 4:45 AM EDT [facility] TRIGLYCERIDES 88 <150 mg/dL 10/08/2024 4:45 AM EDT [facility] LDL-CHOLESTEROL 101(H) mg/dL (calc) 10/08/2024 4:45 AM EDT [facility] CHOL/HDLC RATIO 3.1 <5.0 (calc) 10/08/2024 4:45 AM EDT [facility] NON-HDL CHOLESTEROL 119 <130 mg/dL (calc) 10/08/2024 4:45 AM EDT [facility] Blood Blood / Unknown 10/07/2024 9 :17 AM EDT 10/08/2024 3:03 AM EDT Narrative [facility] - 10/08/2024 4:49 AM EDT FASTING:YES Reference [...] LDL-C. David SS et al. MICKY. 2013;310(19): 3159-8320 (http://education.[employer] Kid!/faq/SVE425) For patients with diabetes plus 1 major ASCVD risk factor, treating to a non-HDL-C goal of <100 mg/dL (LDL-C of <70 mg/dL) is considered a therapeutic option. Eduarda Crouch [facility] LAB - BLOOD DRAW Final Result [facility] [address] [address], [facility] [address] [address] * (ABNORMAL) COMPREHENSIVE METABOLIC PANEL Routine (10/07/2024 9:17 AM EDT) [facility] Signature GLUCOSE 101(H) 65 - 99 mg/dL 10/08/2024 4:45 AM EDT [facility] UREA NITROGEN (BUN) 12 7 - 25 mg/dL 10/08/2024 4:45 AM [employer] CREATININE (blood) 0.85 0.50 - 0.97 mg/dL 10/08/2024 4:45 AM [facility] EGFR 90 > OR = 60 mL/min/1. 73m2 10/08/2024 4:45 AM [facility] BUN/CREATININE RATIO SEE NOTE: 6 - 22 (calc) 10/08/2024 4:45 AM [facility] SODIUM 137 135 - 146 mmol/L 10/08/2024 4:45 AM [facility] POTASSIUM 4.7 3.5 - 5.3 mmol/L 10/08/2024 4:45 AM [facility] CHLORIDE 106 98 - 110 mmol/L 10/08/2024 4:45 AM [facility] CARBON DIOXIDE 23 20 - 32 mmol/L 10/08/2024 4:45 AM [facility] CALCIUM 8.8 8.6 - 10.2 mg/dL 10/08/2024 4:45 AM [facility] PROTEIN, TOTAL 7.7 6.1 - 8.1 g/dL 10/08/2024 4:45 AM [facility] ALBUMIN 4.3 3.6 - 5.1 g/dL 10/08/2024 4:45 AM [facility] GLOBULIN 3.4 1.9 - 3.7 g/dL (calc) 10/08/2024 4:45 AM [facility] ALBUMIN/GLOBULI N RATIO 1.3 1.0 - 2.5 (calc) 10/08/2024 4:45 AM [facility] BILIRUBIN, TOTAL 0.4 0.2 - 1.2 mg/dL 10/08/2024 4:45 AM [facility] ALKALINE PHOSPHATASE 90 31 - 125 U/L 10/08/2024 4:45 AM [facility] AST 33(H) 10 - 30 U/L 10/08/2024 4:45 AM [facility] ALT 45(H) 6 - 29 U/L 10/08/2024 4:45 AM [facility] Blood Blood / Unknown 10/07/2024 9 :17 AM EDT 10/08/2024 3:03 AM EDT Narrative [facility] - 10/08/2024 4:49 AM EDT FASTING:YES . Fasting reference interval . For someone without known diabetes, a glucose value between 100 and 125 mg/dL is consistent with prediabetes and should be confirmed with a follow-up test. . Not Reported: BUN and Creatinine are within reference range. . Eduarda Santanakanujennifer [facility] LAB - BLOOD DRAW Final Result [facility] [employer] [address] [address], [facility] [address] [place] [address] * REFERRAL TO PAIN MANAGEMENT (09/24/2024 3:00 AM EDT) 09/24/2024 3:00 AM EDT Orin Caputo PA-C REFERRAL Final Result * QUANTIFERON-TB GOLD PLUS (08/07/2023 11:20 AM EDT) QUANTIFERON NEGATIVE NEGATIVE [facility] Comment: Negative test result. M. tuberculosis complex infection unlikely. NIL 0.02 IU/mL [facility] MITOGEN-NIL >10.00 IU/mL [facility] TB1-NIL 0.00 IU/mL [facility] TB2-NIL 0.00 IU/mL [facility] Comment: The Nil tube value reflects [...] T-lymphocytes. For additional information, please refer to https://education.Gust/faq/PCA635 (This link is being provided for informational/ educational purposes only.) Blood Blood / Unknown 08/07/2023 1 1:20 AM EDT 08/07/2023 11:21 AM EDT Narrative [facility] - 08/11/2023 4:40 PM EDT FASTING:NO Eduarda Cruoch [facility] LAB - BLOOD DRAW Final Result Performing Organization Address [facility] Co de Phone Number [facility] [address] [address], [employer] [address] [address] * PAP W/ HPV (12/12/2022 3:00 AM EDT) 12/12/2022 3:00 AM EDT [facility] - PATHOLOGY AND CYTOLOGY A MBULATORY Final Result * HISTORIC MAMMOGRAM (07/11/2022 3:00 AM EDT) 07/11/2022 3:00 AM EDT Eduarda Crouch [facility] IMG MAMMO Edited Result - Final * RPR W/RFLX TITER+FTA+CONF (05/25/2022 11:36 AM EDT) RPR (DX) W/REFL TITER AND CONFIRMATORY TESTING NON-REACT [facility] NON-REACT [facility] Blood Blood / Unknown 05/25/2022 1 1:36 AM EDT 05/25/2022 11:37 AM EDT Eduarda Crouch [facility] LAB - BLOOD DRAW Final Result Performing Organization Address [facility]/ZIP Co de Phone Number [employer] [address] [address], [employer] [address] [phone] * (ABNORMAL) HEPATITIS A,B,C PANEL (05/12/2018 10:26 AM EDT) HEPATITIS B SURFACE ANTIBODY POSITIVE(A) NEGATIVE [facility] HEPATITIS B SURFACE ANTIGEN NEGATIVE NEGATIVE [facility] Comment: Over the counter supplements containing high doses of biotin may interfere with this assay. If interference is suspected, patients shoud be retested after refraining from biotin supplements for 72 hours. HEPATITIS C VIRUS DIAGNOSTIC NEGATIVE NEGATIVE [facility] HEPATITIS B CORE ANTIBODY NEGATIVE NEGATIVE [facility] HEPATITIS A ANTIBODY TOTAL NEGATIVE NEGATIVE [facility] [facility] Comment: Over the counter supplements containing high doses of biotin may interfere with this assay. If interference is suspected, patients shoud be retested after refraining from biotin supplements for 72 hours. Blood specimen (specimen) Blood / Unknown 05/12/2018 10:26 AM EDT 05/12/2018 11:[address] [facility] - 05/12/2018 4:22 PM EDT [employer] [id number] [employer] - Bonnie Kate MD PT ID [id number] ORD# [id number] Maine Veronica NP LAB - BLOOD DRAW [place] [address], * HIV-1 & HIV-2 ANTIBODIES (11/22/2014 1:28 PM EDT) HIV 1 AND 2 ANTIBODY SCREEN NEGATIVE NEGATIVE [facility] Comment: Effective 11/02/14, [employer] has replaced the HIV screening test with [...] 1:28 PM EDT 11/22/2014 1:28 PM EDT [facility] 11/22/2014 7:47 PM EDT [employer] [address] [place] [address] PT ID [id number] [employer]# [id number] Sherlyn Blancas DNP LAB - BLOOD DRAW Final Resu lt [facility] [address] [place] [address], from Last 3 Months or Most Recently Relevant to Health Maintenance [place] Care Teams Workflow Developer Relationship Specialty Start Date End Date Eduarda Crouch FNP [address] [place] [id number] PCP - General Internal Medicine 10/13/18
== END 2024-12-24 08:44 | disposition home or self-care (01) ==
LOC: HO.PMC 08:16
PROVIDERS: Visit Provider Nurse Practitioner Family
DX: M47.817 Spondylosis without myelopathy or radiculopathy, lumbosacral region (principal); M51.369 Other intervertebral disc degeneration, lumbar region without mention of lumbar back pain or lower extremity pain; M62.830 Muscle spasm of back; M54.50 Low back pain, unspecified; G89.29 Other chronic pain
CPT/HCPCS: 99214

== ENCOUNTER → 2024-12-24 08:15 | Outpatient (BNVA) | payer MEDICAID, SELFPAY | PROVIDERS: Visit Provider Nurse Practitioner Family | DX: M47.817 Spondylosis without myelopathy or radiculopathy, lumbosacral region (principal); M51.369 Other intervertebral disc degeneration, lumbar region without mention of lumbar back pain or lower extremity pain; M62.830 Muscle spasm of back; M54.50 Low back pain, unspecified; G89.29 Other chronic pain | CPT/HCPCS: 99212 ==